=== PATIENT | male | born 1970 | race Caucasian/White ===

== ENCOUNTER 2016-05-07 20:57 | Inpatient (IN) | payer SELFPAY ==
[~2016-05-07] VITALS: Ht 180.3 cm; Wt 114.7 kg
[~2016-05-07 20:57] MED LIST: IBUP-103 PO; LOSA1TAB PO
[2016-05-07] MEDS ORDERED: SODIUM CHLORIDE 0.9% 1000ML 1,000 ML IV STA (21:14)
[2016-05-07] MEDS ORDERED: LOSARTAN POTASSIUM 50 MG TAB PO STA (21:14)
[2016-05-07] MEDS ORDERED: AMLODIPINE BESYLATE 5 MG TAB PO ONE (21:15)
[2016-05-07] MEDS ORDERED: LOSA1TAB38 PO (21:16)
[2016-05-07] MEDS ORDERED: AMLO-114 PO (21:16)
--- NOTE | 2016-05-07 21:20 | EMERGENCY ROOM VISIT NOTE ---
History Report prepared by Allison: Anupam Gillis Under the Supervision of: Dr. Khalif Rodriguez D.O. First contact with patient: 21:00 Chief Complaint: SEIZURE Stated Complaint: SEIZURE Nursing Triage Summary: Patient has a history of saleem bleed X 2 secondary to hypertension. Today patient had a witnessed unresponsive episode possible seizure. Upon EMS arrival patient is combative, uncooperative, required sedation. Patient arrives, arousable, but sedated. Patient denies any headache, nausea, vomiting, incont of urine or BM, negative recent illness. Patient has not taken htn medications for several days secondary to insurance. 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 This occurred twice in the past. Today, he had an unresponsive episode with a possible seizure. Via the patient, he was on his way to get dinner with his daughter after her concert when they stopped for food. That is all he remembers. Per EMS, the patient was combative, uncooperative, and required sedation and restraint. The patient denies any headache, chest pain, shortness of breath, leg edema, nausea , or vomiting. His only complaint is that his right arm and tongue hurts due to restraint and biting his tongue. He has never had a seizure before. Earlier today, the patient noted to feel at his normal. He said that he has not taken his blood pressure medications recently secondary to a loss of insurance. These include 100 mg Losartan and 10 mg Norvasc. He has not had any surgeries. 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 Review of Systems See HPI for pertinent positives & negatives. A total of 10 systems reviewed and were otherwise negative. Past Medical & Surgical Medical Problems: (1) No Known Active Medical Problems Family History Patient reports no known family medical history. Social History Smoking Status: Current Every Day Smoker Alcohol Use: other (rarely) Drug Use: none Housing Status: lives with family Current/Historical Medications Scheduled Amlodipine (Norvasc), 10 MG PO DAILY Losartan Potassium (Cozaar), 100 MG PO DAILY Allergies Coded Allergies: Ceftriaxone (Verified Allergy, Intermediate, HIVES, 05/17/15) Physical Exam Vital Signs Date Time Temp Pulse Resp B/P Pulse Ox O2 Delivery O2 Flow Rate FiO2 05/07/16 22:00 112/75 05/07/16 21:57 92 13 98 05/07/16 21:44 130/79 05/07/16 21:27 97 15 94 05/07/16 21:27 Nasal Cannula 4.0 05/07/16 21:23 Room Air 05/07/16 21:09 108 05/07/16 21:02 36.6 103 20 160/84 94 Room Air 05/07/16 21:02 92 Room Air 05/07/16 21:01 160/84 Physical Exam GENERAL: Patient is somewhat listless appearing. Answers questions slowly but appropriately. EYES: The conjunctivae are clear. The pupils are round and reactive. EARS, NOSE, MOUTH AND THROAT: The nose is without any evidence of any deformity. Mucous membranes are dry tongue is midline NECK: The neck is nontender and supple. RESPIRATORY: Normal respiratory effort is noted there is no evidence of wheezing rhonchi or rales CARDIOVASCULAR: Regular rate and rhythm noted there no murmurs rubs or gallops normal S1 normal S2 GASTROINTESTINAL: The abdomen is soft. Bowel sounds are present in all quadrants. Abdomen is nontender MUSCULOSKELETAL/EXTREMITIES: There is no evidence of gross deformity full range of motion is noted in the hips and shoulders SKIN: There is no obvious evidence of any rash. There are no petechiae, pallor or cyanosis noted. Linear abrasions to the right arm and right side of the upper back consistent with recent restraint. NEUROLOGIC: Patient is awake alert and oriented x3 strength is symmetric patellar reflexes are 2+ bilaterally. Medical Decision & Procedures ER Provider Diagnostic Interpretation: Radiology results as stated below per my review and radiologist interpretation: CT SCAN OF THE BRAIN WITHOUT IV CONTRAST CLINICAL HISTORY: Seizure. COMPARISON STUDY: CT scan of the brain dated 05/17/2015. TECHNIQUE: Unenhanced axial CT scan of the brain is performed from the vertex to the skull base. Automated dose control exposure was utilized. CT DOSE: 687.98 mGy.cm FINDINGS: Brain parenchyma: Minimal left temporal encephalomalacia is identified at a site of previous hemorrhage. There is no hemorrhage, mass effect, or evidence of acute territorial ischemia by CT criteria. Jordan-white matter is preserved. No extra-axial fluid collection is seen. Ventricles, sulci, cisterns: Normal in configuration. Intracranial vasculature: The visualized intracranial vasculature at the skull base is normal in appearance. Calvarium: Unremarkable. Sinuses and mastoids: Trace mucosal thickening is seen within the sphenoid sinuses. The remaining visualized paranasal sinuses are clear. The mastoid air cells are well pneumatized. Orbits: The bony orbits are grossly intact. IMPRESSION: There is no hemorrhage, mass effect, or evidence of acute territorial ischemia by CT criteria. Electronically signed by: Damion Meléndez M.D. 05/07/2016 9:45 PM Dictated Date/Time: 05/07/2016 9:42 PM SINGLE VIEW CHEST CLINICAL HISTORY: Seizure. FINDINGS: An AP, portable, upright chest radiograph is compared to study dated 05/17/2015. The examination is degraded by portable technique, large body habitus, and patient rotation. The heart is top normal for projection. The mediastinal contour is within normal limits. There is mild bibasilar atelectasis. The lungs and pleural spaces are otherwise clear. No pneumothorax is seen. The bony thorax is grossly intact. Degenerative change is noted in the thoracic spine. Bilateral nipple piercings are noted. IMPRESSION: No acute cardiopulmonary abnormality. Electronically signed by: Damion Meléndez M.D. 05/07/2016 9:28 PM Dictated Date/Time: 05/07/2016 9:27 PM Laboratory Results 05/07/16 20:40 Red Blood Count 5.40, Mean Corpuscular Volume 81.7, Mean Corpuscular Hemoglobin 30.7, Mean Corpuscular Hemoglobin Concent 37.6, Mean Platelet Volume 10.0 05/07/16 20:40 Test 05/07/16 20:40 05/07/16 23:20 05/07/16 23:21 White Blood Count 15.67 K/uL (4.8-10.8) Red Blood Count 5.40 M/uL (4.7-6.1) Hemoglobin 16.6 g/dL (14.0-18.0) Hematocrit 44.1 % (42-52) Mean Corpuscular Volume 81.7 fL (80-100) Mean Corpuscular Hemoglobin 30.7 pg (25-34) Mean Corpuscular Hemoglobin Concent 37.6 g/dl (32-36) Platelet Count 277 K/uL (130-400) Mean Platelet Volume 10.0 fL (7.4-10.4) RDW Standard Deviation 36.7 fL (36.4-46.3) RDW Coefficient of Variation 12.7 % (11.5-14.5) Neutrophils % (Manual) 45.6 % Lymphocytes % (Manual) 26.7 % Variant Lymphocytes % (manual) 18.1 % Monocytes % (Manual) 4.8 % Eosinophils % (Manual) 2.9 % Basophils % (Manual) 1.9 % (0-2) Neutrophils # (Manual) 7.15 K/uL (1.4-6.5) Total Absolute Neutrophils 7.15 K/uL (1.4-6.5) Lymphocytes # (Manual) 4.18 K/uL (1.2-3.4) Absolute Variant Lymphocytes 2.84 K/uL Total Absolute Lymphocytes 7.02 K/uL (1.2-3.4) Monocytes # (Manual) 0.75 K/uL (0.11-0.59) Eosinophils # (Manual) 0.45 K/uL (0-0.5) Basophils # (Manual) 0.30 K/uL (0-0.2) Prothrombin Time 10.7 SECONDS (9.0-12.0) Prothromb Time International Ratio 1.0 (0.9-1.1) Activated Partial Thromboplast Time 22.8 SECONDS (21.0-31.0) Partial Thromboplastin Ratio 0.9 Anion Gap 26.0 mmol/L (3-11) Est Creatinine Clear Calc Drug Dose 73.9 ml/min Estimated GFR () 59.0 Estimated GFR (Non- 50.9 BUN/Creatinine Ratio 11.3 (10-20) Calcium Level 8.6 mg/dl (8.5-10.1) Phosphorus Level 4.2 mg/dl (2.5-4.9) Magnesium Level 2.2 mg/dl (1.8-2.4) Total Bilirubin 0.4 mg/dl (0.2-1) Direct Bilirubin < 0.1 mg/dl (0-0.2) Aspartate Amino Transf (AST/SGOT) 28 U/L (15-37) Alanine Aminotransferase (ALT/SGPT) 56 U/L (12-78) Alkaline Phosphatase 100 U/L (45-117) Total Creatine Kinase 207 U/L (39-308) Total Protein 8.0 gm/dl (6.4-8.2) Albumin 4.4 gm/dl (3.4-5.0) Thyroid Stimulating Hormone (TSH) 7.260 uIu/ml (0.300-4.500) Free Thyroxine 0.93 ng/dl (0.80-1.60) Laboratory results per my review. Medications Administered Medications (Trade) Dose Ordered Sig/Marino Route Start Time Stop Time Status Last Admin Dose Admin Sodium Chloride (Nss 1000ml) 1,000 ml @ 999 mls/hr Q1H1M STAT IV 05/07/16 21:14 05/07/16 22:14 DC 05/07/16 21:28 999 MLS/HR Losartan Potassium (coZAAR TAB) 100 mg ONE STAT PO 05/07/16 21:14 05/07/16 21:16 DC 05/07/16 21:29 100 MG Amlodipine Besylate (Norvasc Tab) 10 mg NOW ONCE PO 05/07/16 21:15 05/07/16 21:16 DC 05/07/16 21:29 10 MG Potassium Chloride (Klor-Con M10) 40 meq NOW STAT PO 05/07/16 23:21 05/07/16 23:22 DC 05/07/16 23:40 40 MEQ ECG Indication: other (Seizure) Rate (beats per minute): 103 Rhythm: sinus tachycardia Findings: no ectopy, other (No acute ST- segment abnormalities) Comparison ECG Date: 18 May 2015 Change: no significant change ED Course 2100: The patient was evaluated in room A12. A complete history and physical examination were performed. 2113: Losartan Potassium 100 mg PO, NSS 1,000 ml @ 999 mls/hr IV 2114: Norvasc Tab 10 mg PO 8: Upon reevaluation, the patient is resting. I discussed results and treatment plan with him. He verbalizes agreement and understanding. I spoke with Dr. Leila Ramirez Hospitalist. The patient will be evaluated for further management and care. Medical Decision Differential diagnosis: Etiologies such as infection, hypoglycemia, electrolyte abnormalities, cardiac sources, intracerebral event, trauma, toxicologic, neurologic, as well as others were entertained. Nursing notes reviewed. Additional history is obtained from the prehospital personnel. The patient is a 45-year-old male who presented to the emergency department by ambulance after having a seizure. I received a prehospital medical command call about this patient. Prior to arrival he had an episode of a seizure. His post ictal phase was very violent and he became aggressive. He required restraint prior to arrival. He received Ativan prior to arrival and upon arriving at the emergency Department he was significantly improved. His condition continued to improve while he was in the ER. He states that he did not feel ill prior to the onset of this episode. The patient doesn't a history of a hemorrhagic CVA in the past. The patient has a history of hypertension and he is not always compliant with his medications. The patient was treated with his blood pressure medication while he was in the emergency department. I discussed the patient's laboratory and radiographic studies with him. Given his history of hemorrhagic CVA is possible that this represents a true seizure disorder and the patient may require further workup as well as antiepileptic medications. This reason I discussed his case with the on-call [facility] hospitalist group. They have agreed to evaluate the patient in the emergency department for further management and disposition. Consults Time Called: 2214 Consulting Physician[facility] Returned Call: [phone] He will be evaluating the patient for further management. Impression Primary Impression: New onset seizure Scribe Attestation The scribe's documentation has been prepared under my direction and personally reviewed by me in its entirety. I confirm that the note above accurately reflects all work, treatment, procedures, and medical decision making performed by me. Departure Information Dispostion Being Evaluated By Hospitalist Referrals No Doctor, Assigned (PCP) Patient Instructions [facility]
[2016-05-07 21:26] LABS: HEMATOCRIT 44.1 % (42-52); MEAN CELL VOLUME 81.7 fL (80-100); MEAN CORPUSCULAR HEMOGLOBIN 30.7 pg (25-34); MEAN CORPUSCULAR HGB CONC 37.6 g/dl (32-36); PLATELET COUNT 277 K/uL (130-400); WHITE BLOOD COUNT 15.67 K/uL (4.8-10.8)
--- NOTE | 2016-05-07 21:29 | DIAGNOSTIC IMAGING REPORT ---
SINGLE VIEW CHEST CLINICAL HISTORY: Seizure. FINDINGS: An AP, portable, upright chest radiograph is compared to study dated 05/17/2015. The examination is degraded by portable technique, large body habitus, and patient rotation. The heart is top normal for projection. The mediastinal contour is within normal limits. There is mild bibasilar atelectasis. The lungs and pleural spaces are otherwise clear. No pneumothorax is seen. The bony thorax is grossly intact. Degenerative change is noted in the thoracic spine. Bilateral nipple piercings are noted. IMPRESSION: No acute cardiopulmonary abnormality. Electronically signed by: Damion Meléndez M.D. 05/07/2016 9:28 PM Dictated Date/Time: 05/07/2016 9:27 PM
[2016-05-07 21:38] LABS: PARTIAL THROMBOPLASTIN RATIO 0.9; PROTHROMBIN TIME (PATIENT) 10.7 SECONDS (9.0-12.0)
--- NOTE | 2016-05-07 21:46 | DIAGNOSTIC IMAGING REPORT ---
CT SCAN OF THE BRAIN WITHOUT IV CONTRAST CLINICAL HISTORY: Seizure. COMPARISON STUDY: CT scan of the brain dated 05/17/2015. TECHNIQUE: Unenhanced axial CT scan of the brain is performed from the vertex to the skull base. Automated dose control exposure was utilized. CT DOSE: 687.98 mGy.cm FINDINGS: Brain parenchyma: Minimal left temporal encephalomalacia is identified at a site of previous hemorrhage. There is no hemorrhage, mass effect, or evidence of acute territorial ischemia by CT criteria. Jordan-white matter is preserved. No extra-axial fluid collection is seen. Ventricles, sulci, cisterns: Normal in configuration. Intracranial vasculature: The visualized intracranial vasculature at the skull base is normal in appearance. Calvarium: Unremarkable. Sinuses and mastoids: Trace mucosal thickening is seen within the sphenoid sinuses. The remaining visualized paranasal sinuses are clear. The mastoid air cells are well pneumatized. Orbits: The bony orbits are grossly intact. IMPRESSION: There is no hemorrhage, mass effect, or evidence of acute territorial ischemia by CT criteria. Electronically signed by: Damion Meléndez M.D. 05/07/2016 9:45 PM Dictated Date/Time: 05/07/2016 9:42 PM
[2016-05-07 22:00] LABS: BUN/CREATININE RATIO 11.3 (10-20); CALCIUM 8.6 mg/dl (8.5-10.1); CREATININE 1.6 mg/dl (0.60-1.40); PHOSPHORUS 4.2 mg/dl (2.5-4.9); THYROID STIMULATING HORMONE 7.26 uIu/ml (0.300-4.500)
[2016-05-07 22:04] LABS: POTASSIUM 3.4 mmol/L (3.5-5.1)
[2016-05-07 22:05] LABS: MAGNESIUM 2.2 mg/dl (1.8-2.4)
[2016-05-07 22:41] LABS: BASOPHIL % 1.9 % (0-2); COMPLETE YES; EOSINOPHIL % 2.9 %; LYMPH ABS # 4.18 K/uL (1.2-3.4); LYMPHOCYTE % 26.7 %; NEUTROPHILS % 45.6 %; VARIANT LYM ABS # 2.84 K/uL; VARIANT LYMPHOCYTE % 18.1 %
[2016-05-07 22:56] LABS: ALKALINE PHOSPHATASE 100 U/L (45-117); ALT/SGPT 56 U/L (12-78); AST/SGOT 28 U/L (15-37)
[2016-05-07] MEDS ORDERED: POTASSIUM CHLORIDE 10 MEQ TABCR PO STA (23:21)
[2016-05-07 23:40] LABS: URINE APPEARANCE CLEAR (CLEAR); URINE BILIRUBIN NEG (NEG); URINE COLOR YELLOW; URINE NITRITE NEG (NEG); URINE SPECIFIC GRAVITY 1.008 (1.000-1.030); UROBILINOGEN NEG (NEG)
[2016-05-07 23:53] LABS: MANUAL MICROSCOPIC REQUIRED? NO; REVIEW REQ? NO
[2016-05-08 00:03] LABS: BENZODIAZEPINE, URINE NEG (NEG); COCAINE,URINE NEG (NEG); PHENCYCLIDINE, URINE NEG (NEG)
[2016-05-08] MEDS ORDERED: LORAZEPAM INJ 1 MG in SYRINGE 0.5 ML IV PRN (00:15)
[2016-05-08] MEDS ORDERED: LEVETIRACETAM IV 500 MG in DEXTROSE 5% 100ML 100 ML IV STA (00:20)
[2016-05-08] MEDS ORDERED: ACETAMINOPHEN 325 MG TAB PO PRN (00:30)
[2016-05-08] MEDS ORDERED: ONDANSETRON INJ 2 MG/ML 2 ML VIAL IV PRN (00:30)
[2016-05-08] MEDS ORDERED: HYDROmorphone INJ 0.5 MG/0.5 ML SYR IV PRN (00:30)
[2016-05-08] MEDS ORDERED: LORAZEPAM 2 MG/ML 1 ML VIAL IV PRN (00:30)
[2016-05-08] MEDS ORDERED: LACTATED RINGER'S 1000ML 1,000 ML IV ONE (01:30)
[2016-05-08] MEDS ORDERED: LORAZEPAM INJ 0.5 MG in SYRINGE 0.75 ML IV PRN (01:30)
[2016-05-08] MEDS ORDERED: GADAVIST IV PRN (01:30)
[2016-05-08 01:48] VITALS: BP 138/87; PULSE 87; TEMP 36.4; O2SAT 94; Ht 180.3 cm; Wt 114.7 kg
--- NOTE | 2016-05-08 05:33 | HISTORY & PHYSICAL EXAMINATION ---
DATE OF ADMISSION: 05/07/2016 PRIMARY CARE DOCTOR: Dr. Nunez CHIEF COMPLAINT: New onset seizures. History was obtained from the patient's records. HISTORY OF PRESENT ILLNESS: Medical history is significant for recurrent intracranial hemorrhage, hypertension, and ongoing tobacco abuse. 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 So far no explanation found as per px. Initially on Keppra for seizure prophylaxis. Subsequently, the patient was tapered off Keppra in the middle of last year. Last night, the patient was at the grocery. He went to over to the carlos register. Last memory was feeling fuzzy, saying something to the cardiac cath technician that did not make sense. Patient subsequently woke up on the floor, having bit his tongue. He woke up handcuffed placed by some police patrol lieutenant grocery bystander who had to handcuff him to restrain him. No chest pain, no shortness of breath. No incontinence. He was brought to the Emergency Room. SBP 160s at the ER. Patient given Amlodipine and Cozaar. MEDICAL HISTORY: As above. Alternating his blood pressure pills secondary to insurance issues. SURGERIES: neurovascular procedures. HOME MEDICATIONS: Include; Losartan and amlodipine. FAMILY HISTORY: Hypertension. PERSONAL AND SOCIAL HISTORY: A pack daily. No chronic intake of alcoholic beverages. 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 ALLERGIES: TO CEFTRIAXONE. REVIEW OF SYSTEMS: As per HPI, all other ROS negative. PHYSICAL EXAMINATION: VITAL SIGNS: Blood pressure was noted to be 160/84 later 130/79, pulse rate 97, RR 15, temperature 36.4 and sats 94 on room air. GENERAL: Noted to be unkempt, obese, in no respiratory distress, looks older for stated age. SKIN: Normal color. HEENT: [place] palpebral conjunctivae. Dry mucosa. Tongue noted to be bruised. NECK: Short neck. LUNGS: Decreased breath sounds. HEART: Regular rate and rhythm. ABDOMEN: Some distention. EXTREMITIES: No edema. no tenderness NEUROLOGIC: No gross focality. LABORATORIES: Hemoglobin was noted to be 16, hematocrit 44, white cell count 15 and platelets 277. Sodium 141, potassium 3.4, chloride 102, CO2 13, BUN 18, creatinine 1.[address] of the head; no acute pathology. Chest x-ray; no acute cardiac abnormality ASSESSMENT: 1. New onset seizures hx recurrent intracranial hemorrhage clinical dehydration, electrolyte abnormalities may have lowered seizure threshold 2. hypertension elevated suboptimal compliance secondary to financial constraints 3. ongoing tobacco abuse 4. acute renal failure poss from home medication. PLAN: GMF Resume Keppra. seizure precautions, Ativan prn EEG. MRI of the brain for new onset seizure workup. Neurology consult. RE new onset seizure. (Patient is known to Dr. Wick.) Replace potassium. Check magnesium. Monitor creatinine response to IVF Hold home ARB until creatinine is at baseline. Nicotine patch. DVT prophylaxis, SCDs. RE hx intracranial hemorrhage. Full code. The Case was discussed with Dr. 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 He concurs w/ plan to resume Keppra. MTDD
[2016-05-08 05:38] LABS: BASO % 0.3 %; BASO ABS # 0.03 K/uL (0-0.2); COMPLETE YES; EOS % 2.2 %; IG% 0.3 %; LYMPH % 20.3 %; LYMPH ABS # 2.33 K/uL (1.2-3.4); MEAN CELL VOLUME 81.9 fL (80-100); MEAN CORPUSCULAR HGB CONC 36.7 g/dl (32-36); MONO % 9.8 %; NEUT % 67.1 %; PLATELET COUNT 186 K/uL (130-400); RED BLOOD COUNT 4.76 M/uL (4.7-6.1); WHITE BLOOD COUNT 11.47 K/uL (4.8-10.8)
[2016-05-08] MEDS: LEVETIRACETAM IV 500 MG in DEXTROSE 5% 100ML 100 ML IV SCH ×2 (05:57→19:17)
[2016-05-08 06:01] LABS: BUN/CREATININE RATIO 12.2 (10-20); CALCIUM 8.1 mg/dl (8.5-10.1); CREATININE 1.2 mg/dl (0.60-1.40); POTASSIUM 3.5 mmol/L (3.5-5.1)
--- NOTE | 2016-05-08 07:20 | DIAGNOSTIC IMAGING REPORT ---
Brain MRI WITH AND WITHOUT CONTRAST HISTORY: seizure activity, history of hemorrhagic CVA TECHNIQUE: Multiplanar multisequence MRI of the brain was performed both before and after the intravenous administration of contrast. COMPARISON STUDY: Head CT 05/07/2016. FINDINGS: Small linear focus of encephalomalacia within the left temporal lobe with associated hemosiderin consistent with an old hemorrhagic infarct. There is no mass, acute hemorrhage, acute infarct, or midline shift. There are few punctate foci of T2 hyperintensity seen within the periventricular white matter. These are nonspecific but favor minimal microvascular ischemic change. The ventricles are normal in size. Medial temporal lobes are symmetric. Mild motion artifact. No definite abnormal enhancement. The major vascular flow voids at the skull base are maintained. Mild mucosal thickening within the right ethmoid air cells and sphenoid sinuses. The orbits are unremarkable. IMPRESSION: Old small left temporal hemorrhagic infarct. Otherwise, no acute intracranial abnormality. Electronically signed by: Trae Pinedo M.D. 05/08/2016 7:19 AM Dictated Date/Time: 05/08/2016 7:14 AM
[2016-05-08 08:11] VITALS: BP 116/72; PULSE 81; TEMP 36.3; O2SAT 97
[2016-05-08] MEDS: NICOTINE 14 MG/24 HR TDSY TD SCH (08:20)
[2016-05-08] MEDS: AMLODIPINE BESYLATE 5 MG TAB PO SCH (08:21)
--- NOTE | 2016-05-08 11:49 | Progress Note ---
Medicine Progress Note Date & Time of Visit: May 08, 2016 at 11:31. (Charu Draper PA-C) Subjective Patient seen and examined. He was admitted overnight for possible seizure activity which occurred around 9pm last evening. Pt states he was in a convenience store and lost his train of thought then the next thing he remembered is awakening on the floor. He states he was handcuffed due to combativeness. He did bite his tongue during the episode. He states since that time he has mild tingling in left fingertips. He states "head is swimming" but not feeling lightheaded or spinning sensation. He states his balance was slightly off when ambulating to restroom this morning. Prior to the episode patient was feeling well and was eating/drinking normally. He denies prior seizure. He has a history of brain hemorrhage in August 2014 and May 2015 and was on Keppra for seizure prophylaxis but this was discontinued approximately 6 months ago. He at breakfast this morning. He reports increased urine output while on IVF's. Pt denies headache, vision change, speech or swallowing difficulty, focal weakness, chest pain, SOB, N/V/D, dysuria. Denies hx of thyroid disease. (Charu Draper PA-C) Objective Last 8 Hrs Date Time Temp Pulse Resp B/P Pulse Ox O2 Delivery O2 Flow Rate FiO2 05/08/16 08:11 36.3 81 16 116/72 97 Room Air 05/08/16 08:00 Room Air Physical Exam: General-alert pleasant 45 year old male, no distress Eyes-anicteric, JOHNNY, EOMI ENT-hearing intact, pharynx normal Neck-supple, trachea midline, no bruits Lungs-CTA bilaterally, no respiratory distress Heart-RRR, no murmur Abdomen-soft, nontender, normal bowel sounds Extremities-no edema, no calf tenderness Neuro-cranial nerves intact, no focal motor or sensory deficits, finger to nose intact bilaterally Laboratory Results: Last 24 Hours Test 05/07/16 20:40 05/07/16 23:20 05/07/16 23:56 05/08/16 05:12 White Blood Count 15.67 K/uL 11.47 K/uL Red Blood Count 5.40 M/uL 4.76 M/uL Hemoglobin 16.6 g/dL 14.3 g/dL Hematocrit 44.1 % 39.0 % Mean Corpuscular Volume 81.7 fL 81.9 fL Mean Corpuscular Hemoglobin 30.7 pg 30.0 pg Mean Corpuscular Hemoglobin Concent 37.6 g/dl 36.7 g/dl Platelet Count 277 K/uL 186 K/uL Mean Platelet Volume 10.0 fL 10.0 fL RDW Standard Deviation 36.7 fL 37.6 fL RDW Coefficient of Variation 12.7 % 12.8 % Neutrophils % (Manual) 45.6 % Lymphocytes % (Manual) 26.7 % Variant Lymphocytes % (manual) 18.1 % Monocytes % (Manual) 4.8 % Eosinophils % (Manual) 2.9 % Basophils % (Manual) 1.9 % Neutrophils # (Manual) 7.15 K/uL Total Absolute Neutrophils 7.15 K/uL Lymphocytes # (Manual) 4.18 K/uL Absolute Variant Lymphocytes 2.84 K/uL Total Absolute Lymphocytes 7.02 K/uL Monocytes # (Manual) 0.75 K/uL Eosinophils # (Manual) 0.45 K/uL Basophils # (Manual) 0.30 K/uL Prothrombin Time 10.7 SECONDS Prothromb Time International Ratio 1.0 Activated Partial Thromboplast Time 22.8 SECONDS Partial Thromboplastin Ratio 0.9 Sodium Level 141 mmol/L 144 mmol/L Potassium Level 3.4 mmol/L 3.5 mmol/L Chloride Level 102 mmol/L 108 mmol/L Carbon Dioxide Level 13 mmol/L 28 mmol/L Anion Gap 26.0 mmol/L 8.0 mmol/L Blood Urea Nitrogen 18 mg/dl 15 mg/dl Creatinine 1.60 mg/dl 1.20 mg/dl Est Creatinine Clear Calc Drug Dose 73.9 ml/min 99.0 ml/min Estimated GFR () 59.0 83.5 Estimated GFR (Non- 50.9 72.1 BUN/Creatinine Ratio 11.3 12.2 Random Glucose 124 mg/dl 96 mg/dl Calcium Level 8.6 mg/dl 8.1 mg/dl Phosphorus Level 4.2 mg/dl Magnesium Level 2.2 mg/dl Total Bilirubin 0.4 mg/dl Direct Bilirubin < 0.1 mg/dl Aspartate Amino Transf (AST/SGOT) 28 U/L Alanine Aminotransferase (ALT/SGPT) 56 U/L Alkaline Phosphatase 100 U/L Total Creatine Kinase 207 U/L Total Protein 8.0 gm/dl Albumin 4.4 gm/dl Thyroid Stimulating Hormone (TSH) 7.260 uIu/ml Free Thyroxine 0.93 ng/dl Urine Color YELLOW Urine Appearance CLEAR Urine pH 5.0 Urine Specific [place] 1.008 Urine Protein NEG Urine Glucose (UA) NEG Urine Ketones NEG Urine Occult Blood NEG Urine Nitrite NEG Urine Bilirubin NEG Urine Urobilinogen NEG Urine Leukocyte Esterase NEG Urine Opiates Screen NEG Urine Methadone, Qualitative NEG Urine Barbiturates NEG Urine Phencyclidine (PCP) Level NEG Ur Amphetamine/Methamphetamine NEG MDMA (Ecstasy) Screen NEG Urine Benzodiazepines Screen NEG Urine Cocaine Metabolite NEG Urine Marijuana (THC) NEG Lactic Acid Level 1.2 mmol/L Neutrophils (%) (Auto) 67.1 % Lymphocytes (%) (Auto) 20.3 % Monocytes (%) (Auto) 9.8 % Eosinophils (%) (Auto) 2.2 % Basophils (%) (Auto) 0.3 % Neutrophils # (Auto) 7.71 K/uL Lymphocytes # (Auto) 2.33 K/uL Monocytes # (Auto) 1.12 K/uL Eosinophils # (Auto) 0.25 K/uL Basophils # (Auto) 0.03 K/uL Immature Granulocyte % (Auto) 0.3 % Immature Granulocyte # (Auto) 0.03 K/uL Date/Time Source Procedure Growth Status 05/07/16 23:56 Blood Blood Culture Pending Received 05/07/16 23:50 Blood Blood Culture Pending Received (Charu Draper PA-C) Assessment & Plan NEW ONSET SEIZURE History of recurrent intracranial hemorrhage Was clinically dehydrated with hypokalemia on admission which may have lowered seizure threshold Ashlyn resumed Neurology consulted; case discussed with Dr. 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 Contreras. Please see his addendum. Current Inpatient Medications: Current Inpatient Medications Medications (Trade) Dose Ordered Sig/Marino Route Start Time Stop Time Status Last Admin Dose Admin Levetiracetam 500 mg/Dextrose 105 ml @ 420 mls/hr Q12H IV 05/08/16 06:00 06/07/16 05:59 05/08/16 05:57 420 MLS/HR Lorazepam/Syringe (Ativan Inj/ Syringe) 1 ml @ 0.5 mls/min UD PRN IV 05/08/16 00:15 06/07/16 00:14 Acetaminophen (Tylenol Tab) 650 mg Q4H PRN PO 05/08/16 00:30 06/07/16 00:29 Hydromorphone HCl (Dilaudid Inj) 0.5 mg Q3H PRN IV 05/08/16 00:30 05/22/16 00:29 Oxycodone/ Acetaminophen (Percocet 5-325mg Tab) 1 tab Q6H PRN PO 05/08/16 00:30 05/22/16 00:29 Ondansetron HCl (Zofran Inj) 4 mg Q6H PRN IV 05/08/16 00:30 06/07/16 00:29 Lorazepam 0.5 mg 0.5 mg Q4H PRN IV 05/08/16 00:30 06/07/16 00:29 Lactated Ringer's (Lr 1000ml) 1,000 ml @ 75 mls/hr [id number] ONCE IV 05/08/16 01:30 05/08/16 14:49 05/08/16 01:39 75 MLS/HR Nicotine (Nicoderm Cq 14MG Patch) 1 patch QAM TD 05/08/16 09:00 06/07/16 08:59 Miscellaneous (Remove Nicoderm Patch) 1 ea HS N/A 05/08/16 21:00 06/07/16 20:59 Amlodipine Besylate (Norvasc Tab) 10 mg DAILY PO 05/08/16 09:00 06/07/16 08:59 05/08/16 08:21 10 MG Gadobutrol 11 mmol 11 mmol UD PRN IV 05/08/16 01:30 05/12/16 01:29 Lorazepam/Syringe (Ativan Inj/ Syringe) 1 ml @ 1 mls/min Q4H PRN IV 05/08/16 01:30 06/07/16 01:29 (Charu Draper PA-C) Patient5 continues to do well. Alert/AWake and no new seizure event overnight. (Sebastian Contreras MD)
[2016-05-08] MEDS: OXYCODONE/ACETAMINOPHEN 5-325 TAB PO PRN ×2 (14:24→20:20)
--- NOTE | 2016-05-08 14:37 | Neurology Consultation ---
Neurology Consultation Date of Consultation: May 08, 2016. Attending Physician: Sebastian Contreras MD Primary Care Physician: Calin Nunez MD Reason for Consultation: new onset seizure History of Present Illness Source: patient Tobin is a 45 year old male with PMH recurrent ICH, HTN and tobacco abuse. He had a left temporal hemorrhage in August of 2014 and May 2015. He was in a convenience store and lost his train of thought then the next thing he remembered is awakening on the floor. He states he was handcuffed due to combativeness. He also bite his tongue. He states since that time he has mild tingling in left fingertips. He states "head is swimming" off balance he states the room is not spinng but he was off balance with ambulating to restroom this morning. He state she was on seizure medicine in the past but that was to prevent a seizure he didn't have a seizure with either bleed. He was on Keppra 500 mg BID but is was weaned off since he had not had a seizure. 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 Denies headache, vision change, speech or swallowing difficulty, focal weakness , chest pain, SOB, N/V/D, dysuria. + light headed, balance issue, back and tongue pain. Past Medical/Surgical History Medical Problems: (1) Headache Status: Acute (2) Intracranial hemorrhage Status: Acute (3) Jaw pain Status: Acute (4) New onset seizure Status: Acute (5) Pain, dental Status: Acute Social History Smoking Status: Current every day smoker Drug Use: none Housing Status: lives with family Allergies Coded Allergies: Ceftriaxone (Verified Allergy, Intermediate, HIVES, 05/17/15) Current Inpatient Medications Current Inpatient Medications Medications (Trade) Dose Ordered Sig/Marino Route Start Time Stop Time Status Last Admin Dose Admin Levetiracetam 500 mg/Dextrose 105 ml @ 420 mls/hr Q12H IV 05/08/16 06:00 06/07/16 05:59 05/08/16 05:57 420 MLS/HR Lorazepam/Syringe (Ativan Inj/ Syringe) 1 ml @ 0.5 mls/min UD PRN IV 05/08/16 00:15 06/07/16 00:14 Acetaminophen (Tylenol Tab) 650 mg Q4H PRN PO 05/08/16 00:30 06/07/16 00:29 Hydromorphone HCl (Dilaudid Inj) 0.5 mg Q3H PRN IV 05/08/16 00:30 05/22/16 00:29 Oxycodone/ Acetaminophen (Percocet 5-325mg Tab) 1 tab Q6H PRN PO 05/08/16 00:30 05/22/16 00:29 Ondansetron HCl (Zofran Inj) 4 mg Q6H PRN IV 05/08/16 00:30 06/07/16 00:29 Lorazepam 0.5 mg 0.5 mg Q4H PRN IV 05/08/16 00:30 06/07/16 00:29 Lactated Ringer's (Lr 1000ml) 1,000 ml @ 75 mls/hr [id number] ONCE IV 05/08/16 01:30 05/08/16 14:49 05/08/16 01:39 75 MLS/HR Nicotine (Nicoderm Cq 14MG Patch) 1 patch QAM TD 05/08/16 09:00 06/07/16 08:59 Miscellaneous (Remove Nicoderm Patch) 1 ea HS N/A 05/08/16 21:00 06/07/16 20:59 Amlodipine Besylate (Norvasc Tab) 10 mg DAILY PO 05/08/16 09:00 06/07/16 08:59 05/08/16 08:21 10 MG Gadobutrol 11 mmol 11 mmol UD PRN IV 05/08/16 01:30 05/12/16 01:29 Lorazepam/Syringe (Ativan Inj/ Syringe) 1 ml @ 1 mls/min Q4H PRN IV 05/08/16 01:30 06/07/16 01:29 Physical Exam Vital Signs (Past 24 Hrs): Date Time Temp Pulse Resp B/P Pulse Ox O2 Delivery O2 Flow Rate FiO2 05/08/16 08:11 36.3 81 16 116/72 97 Room Air 05/08/16 08:00 Room Air 05/08/16 01:48 36.4 87 20 138/87 94 Room Air 05/08/16 00:04 36.4 83 19 128/82 100 05/07/16 22:00 112/75 3/6/17 21:57 92 13 98 05/07/16 21:44 130/79 05/07/16 21:27 97 15 94 05/07/16 21:27 Nasal Cannula 4.0 05/07/16 21:23 Room Air 05/07/16 21:09 108 05/07/16 21:02 36.6 103 20 160/84 94 Room Air 05/07/16 21:02 92 Room Air 05/07/16 21:01 160/84 Physical Exam: Constitutional: BP 110/78 | Pulse 68 | Temp (Src) 96.4 (Tympanic) | Resp 12 | Wt 175 lbs 12.8 oz (79.742kg) | BMI 32.15 kg/m | BSA 1.87 m, appearance nourished, healthy and normal Ears, Nose, Mouth and Throat: mucous membranes moist, no injection and skin normal, eyes normal Cardiovascular: normal S-1 and S-2 and regular rate and rhythm Respiratory: clear to auscultation (CTA) and no rales, ronchi or wheeze Musculoskeletal: no peripheral edema and good distal pulses Skin: no stigmata of neurocutaneous disease noted and normal and intact Eyes: extraocular muscles intact (EOMI) and pupils equal, round and reactive to light (PERRL) NEUROLOGIC EXAMINATION: Mental status: Alert and interactive Oriented to full date and location Oriented to person Speech fluent with no evidence of aphasia Cranial Nerves Normal findings for Cranial Nerves II - XII Reflexes: Deep tendon reflexes were symmetrical and graded 2/5. Plantar responses were flexor. Sensory: no sensory deficits Coordination: Romberg absent Gait/Stance: Posture normal. Gait normal: with steady with steps, base, turning, heel and toe walking and tandem gait. Motor: Negative for pronator drift of out stretched arms with eyes closed. Strength: Normal - 5/5 all extremities Laboratory Results Past 24 Hours: 05/08/16 05:12 Red Blood Count 4.76, Mean Corpuscular Volume 81.9, Mean Corpuscular Hemoglobin 30.0, Mean Corpuscular Hemoglobin Concent 36.7, Mean Platelet Volume 10.0, Neutrophils (%) (Auto) 67.1, Lymphocytes (%) (Auto) 20.3, Monocytes (%) (Auto) 9.8, Eosinophils (%) (Auto) 2.2, Basophils (%) (Auto) 0.3, Neutrophils # (Auto) 7.71, Lymphocytes # (Auto) 2.33, Monocytes # (Auto) 1.12, Eosinophils # (Auto) 0.25, Basophils # (Auto) 0.03 05/08/16 05:12 Test 05/07/16 20:40 05/07/16 23:20 05/07/16 23:56 05/08/16 05:12 Neutrophils % (Manual) 45.6 % Lymphocytes % (Manual) 26.7 % Variant Lymphocytes % (manual) 18.1 % Monocytes % (Manual) 4.8 % Eosinophils % (Manual) 2.9 % Basophils % (Manual) 1.9 % (0-2) Neutrophils # (Manual) 7.15 K/uL (1.4-6.5) Total Absolute Neutrophils 7.15 K/uL (1.4-6.5) Lymphocytes # (Manual) 4.18 K/uL (1.2-3.4) Absolute Variant Lymphocytes 2.84 K/uL Total Absolute Lymphocytes 7.02 K/uL (1.2-3.4) Monocytes # (Manual) 0.75 K/uL (0.11-0.59) Eosinophils # (Manual) 0.45 K/uL (0-0.5) Basophils # (Manual) 0.30 K/uL (0-0.2) Prothrombin Time 10.7 SECONDS (9.0-12.0) Prothromb Time International Ratio 1.0 (0.9-1.1) Activated Partial Thromboplast Time 22.8 SECONDS (21.0-31.0) Partial Thromboplastin Ratio 0.9 Phosphorus Level 4.2 mg/dl (2.5-4.9) Magnesium Level 2.2 mg/dl (1.8-2.4) Total Bilirubin 0.4 mg/dl (0.2-1) Direct Bilirubin < 0.1 mg/dl (0-0.2) Aspartate Amino Transf (AST/SGOT) 28 U/L (15-37) Alanine Aminotransferase (ALT/SGPT) 56 U/L (12-78) Alkaline Phosphatase 100 U/L (45-117) Total Creatine Kinase 207 U/L (39-308) Total Protein 8.0 gm/dl (6.4-8.2) Albumin 4.4 gm/dl (3.4-5.0) Thyroid Stimulating Hormone (TSH) 7.260 uIu/ml (0.300-4.500) Free Thyroxine 0.93 ng/dl (0.80-1.60) Urine Color YELLOW Urine Appearance CLEAR (CLEAR) Urine pH 5.0 (4.5-7.5) Urine Specific [place] 1.008 (1.000-1.030) Urine Protein NEG (NEG) Urine Glucose (UA) NEG (NEG) Urine Ketones NEG (NEG) Urine Occult Blood NEG (NEG) Urine Nitrite NEG (NEG) Urine Bilirubin NEG (NEG) Urine Urobilinogen NEG (NEG) Urine Leukocyte Esterase NEG (NEG) Urine Opiates Screen NEG (NEG) Urine Methadone, Qualitative NEG (NEG) Urine Barbiturates NEG (NEG) Urine Phencyclidine (PCP) Level NEG (NEG) Ur Amphetamine/Methamphetamine NEG (NEG) MDMA (Ecstasy) Screen NEG (NEG) Urine Benzodiazepines Screen NEG (NEG) Urine Cocaine Metabolite NEG (NEG) Urine Marijuana (THC) NEG (NEG) Lactic Acid Level 1.2 mmol/L (0.4-2.0) White Blood Count 11.47 K/uL (4.8-10.8) Red Blood Count 4.76 M/uL (4.7-6.1) Hemoglobin 14.3 g/dL (14.0-18.0) Hematocrit 39.0 % (42-52) Mean Corpuscular Volume 81.9 fL (80-100) Mean Corpuscular Hemoglobin 30.0 pg (25-34) Mean Corpuscular Hemoglobin Concent 36.7 g/dl (32-36) Platelet Count 186 K/uL (130-400) Mean Platelet Volume 10.0 fL (7.4-10.4) Neutrophils (%) (Auto) 67.1 % Lymphocytes (%) (Auto) 20.3 % Monocytes (%) (Auto) 9.8 % Eosinophils (%) (Auto) 2.2 % Basophils (%) (Auto) 0.3 % Neutrophils # (Auto) 7.71 K/uL (1.4-6.5) Lymphocytes # (Auto) 2.33 K/uL (1.2-3.4) Monocytes # (Auto) 1.12 K/uL (0.11-0.59) Eosinophils # (Auto) 0.25 K/uL (0-0.5) Basophils # (Auto) 0.03 K/uL (0-0.2) RDW Standard Deviation 37.6 fL (36.4-46.3) RDW Coefficient of Variation 12.8 % (11.5-14.5) Immature Granulocyte % (Auto) 0.3 % Immature Granulocyte # (Auto) 0.03 K/uL (0.00-0.02) Anion Gap 8.0 mmol/L (3-11) Est Creatinine Clear Calc Drug Dose 99.0 ml/min Estimated GFR () 83.5 Estimated GFR (Non- 72.1 BUN/Creatinine Ratio 12.2 (10-20) Calcium Level 8.1 mg/dl (8.5-10.1) Imaging MRI with and without contrast brain- Old small left temporal hemorrhagic infarct. Otherwise, no acute intracranial abnormality. Impression 45 year old male s/p seizure LOC and fall. Plan 1. MRI no acute findings 2. continue Keppra 500 mg BID 3. back pain management per primary team 4. no swimming, bathing alone, no heights, no driving x 6 months 5. PT for balance issues 6. seizure precautions and safety discussed 7. urged to quit smoking I have seen and discussed above patient care and mgt with Dr Yoni Coello, neurolog I have seen this patient and reviewed his records, examined him and reviewed the above with Luann Florez post two left hemispheric bleeds of uncertain cause ( possibley hypertensive but odd ) with negative workups and off the peventative doses of keppra that been on board for about a year for at least the past six months Now in with clear cut seizure likely of focal origin with secondary generalization and was quite combative post ictally Now calm with minor bucal trauma and non focal exam with nothing new on imaging and with a normal eeg but clearly needs to be back on keppra in low dose with follow up levels on outpatient basis We may need to raise the dose into a therapeutic window as in the past he was on only preventative doses and the seizure now raises the bar a bit. 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
[2016-05-08 15:19] VITALS: BP 101/63; PULSE 87; TEMP 37.1; O2SAT 96
[2016-05-08 16:00] VITALS: O2SAT 96
--- NOTE | 2016-05-08 22:02 | ELECTROENCEPHALOGRAPH REPORT ---
REQUESTING PHYSICIAN: Dr. Dee. 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 Recurrent seizure last night. EEG DIAGNOSIS: Essentially normal during wakefulness. DESCRIPTION OF TRACING: This EEG was done as a bedside recording with simultaneous video analysis of patient movement and behavior. There are a number of muscle movement artifacts throughout the recording, but none of them are significant duration to make interpretation, inadequate. Photic stimulation was performed. Hyperventilation was not. Drowsiness and light sleep were not recorded. Under these conditions, there is evidence of what appears to be a normal background rhythm in the alpha range of up to 10 Hz of maximum frequency and 30 microvolts of maximum amplitude. This is maximum posterior head regions and bilaterally symmetrical. Polymorphic mid frequency theta activity is seen over all head regions without clear focal or regional predominance. Anterior head region maximum bilaterally symmetrical low-voltage fast activity in the beta range is present. Photic stimulation provoked some modest driving response without a photomyogenic or photoparoxysmal component. At no time during the waking tracing is there evidence for potentially epileptogenic activity in the form of polyspike or spike wave bursts, focal sharp waves or focal spikes. INTERPRETATION: This EEG is essentially normal during wakefulness without evidence for focal or generalized encephalopathy and without evidence for potentially epileptogenic activity, but the absence of the latter does not exclude the diagnosis of a seizure disorder.
[2016-05-09 00:17] VITALS: BP 101/64; PULSE 70; TEMP 36.8; O2SAT 92
[2016-05-09] MEDS: LEVETIRACETAM IV 500 MG in DEXTROSE 5% 100ML 100 ML IV SCH (06:10)
[2016-05-09 06:33] LABS: BUN/CREATININE RATIO 11.4 (10-20); CALCIUM 8.3 mg/dl (8.5-10.1); CREATININE 1.3 mg/dl (0.60-1.40); POTASSIUM 3.5 mmol/L (3.5-5.1)
[2016-05-09 07:28] VITALS: BP 103/67; PULSE 70; TEMP 36.6; O2SAT 95
[2016-05-09] MEDS: NICOTINE 14 MG/24 HR TDSY TD SCH (07:35)
[2016-05-09] MEDS: AMLODIPINE BESYLATE 5 MG TAB PO SCH (07:36)
--- NOTE | 2016-05-09 09:46 | Progress Note ---
Medicine Progress Note Date & Time of Visit: May 09, 2016 at 09:11. (Charu Draper PA-C) Subjective Patient seen and examined. States occasionally his "head is swimming" transiently when he changes position. He has been able to ambulate to restroom without issues. His tongue and coccyx area are sore. States Percocet helped with the back pain. Denies need for pain medication on discharge. He is eating full meals. Denies fever, NARANJO, weakness, numbness, chest pain, SOB, abdominal pain, N/V. Patient feels ready to go home. (Charu Draper PA-C) Patient is doing very well. No new seizure activity overnight. Denies any headache, nausea/vomiting or visual changes. (Sebastian Contreras MD) Objective Last 8 Hrs Date Time Temp Pulse Resp B/P Pulse Ox O2 Delivery O2 Flow Rate FiO2 05/09/16 08:00 Room Air 05/09/16 07:28 36.6 70 16 103/67 95 Room Air Physical Exam: General-alert pleasant 45 year old male, no distress Eyes-anicteric, JOHNNY ENT-hearing intact, pharynx normal Neck-supple, trachea midline, no bruits Lungs-CTA bilaterally, no respiratory distress Heart-RRR, no murmur Abdomen-soft, nontender, normal bowel sounds Extremities-no edema, no calf tenderness Neuro-alert, oriented x3, normal affect, grossly nonfocal Laboratory Results: Last 24 Hours Test 05/09/16 05:05 Sodium Level 143 mmol/L Potassium Level 3.5 mmol/L Chloride Level 107 mmol/L Carbon Dioxide Level 29 mmol/L Anion Gap 7.0 mmol/L Blood Urea Nitrogen 15 mg/dl Creatinine 1.30 mg/dl Est Creatinine Clear Calc Drug Dose 91.4 ml/min Estimated GFR () 75.8 Estimated GFR (Non- 65.4 BUN/Creatinine Ratio 11.4 Random Glucose 85 mg/dl Calcium Level 8.3 mg/dl (Charu Draper PA-C) Assessment & Plan NEW ONSET SEIZURE History of recurrent intracranial hemorrhage; previously on Keppra for seizure prophylaxis and d/c approx 6 months ago Was clinically dehydrated with hypokalemia on admission which may have lowered seizure threshold Potassium replaced and IVF hydration given Keppra was resumed Neurology consulted; appreciate input MRI showed no acute change; + old small left temporal hemorrhagic infarct Check EEG- no seizure activity May be discharged today from neurology standpoint given no further events overnight Continue Keppra 500 mg BID No swimming, bathing alone, no heights, no driving x 6 months PT evaluation for balance issue pending- PT aware Follow up with Dr. Wick in clinic in approximately 3 weeks with Keppra level prior to visit HYPERTENSION BP initially elevated; now running in 100s systolic Will continue to hold Losartan on discharge Continue amlodipine DELIA Possibly from ARB, dehydration Losartan held; IVF's administered Cr improved from 1.6 to baseline of 1.2 HYPOKALEMIA Replacement given; now resolved Magnesium WNL on admission ELEVATED TSH Free T4 is WNL DVT PROPHYLAXIS SCD's due to hx of intracranial hemorrhage DISPOSITION F/u with PCP Dr. Nunez F/u with neurology Dr. Wick in approximately 3 weeks with Keppra level prior to discharge Patient seen in collaboration with Dr. Contreras. Please see his addendum. Current Inpatient Medications: Current Inpatient Medications Medications (Trade) Dose Ordered Sig/Marino Route Start Time Stop Time Status Last Admin Dose Admin Levetiracetam 500 mg/Dextrose 105 ml @ 420 mls/hr Q12H IV 05/08/16 06:00 06/07/16 05:59 05/09/16 06:10 420 MLS/HR Lorazepam/Syringe (Ativan Inj/ Syringe) 1 ml @ 0.5 mls/min UD PRN IV 05/08/16 00:15 06/07/16 00:14 Acetaminophen (Tylenol Tab) 650 mg Q4H PRN PO 05/08/16 00:30 06/07/16 00:29 Hydromorphone HCl (Dilaudid Inj) 0.5 mg Q3H PRN IV 05/08/16 00:30 05/22/16 00:29 05/08/16 19:17 0.5 MG Oxycodone/ Acetaminophen (Percocet 5-325mg Tab) 1 tab Q6H PRN PO 05/08/16 00:30 05/22/16 00:29 05/08/16 20:20 1 TAB Ondansetron HCl (Zofran Inj) 4 mg Q6H PRN IV 05/08/16 00:30 06/07/16 00:29 Lorazepam (Ativan Inj) 0.5 mg Q4H PRN IV 05/08/16 00:30 4 00:29 Nicotine (Nicoderm Cq 14MG Patch) 1 patch QAM TD 05/08/16 09:00 06/07/16 08:59 Miscellaneous (Remove Nicoderm Patch) 1 ea HS N/A 05/08/16 21:00 06/07/16 20:59 Amlodipine Besylate (Norvasc Tab) 10 mg DAILY PO 05/08/16 09:00 06/07/16 08:59 05/09/16 07:36 10 MG Gadobutrol 11 mmol 11 mmol UD PRN IV 05/08/16 01:30 05/12/16 01:29 Lorazepam/Syringe (Ativan Inj/ Syringe) 1 ml @ 1 mls/min Q4H PRN IV 05/08/16 01:30 06/07/16 01:29 (Charu Draper, PA-C) Clinically & hemodynamically doing well. Noted input by Neurology as well discussed with them. [facility] Should follow up with Neurology in 1-2 weeks. Explained to patient about it. No driving for 6 months and patient understands. (Sebastian Contreras MD)
[2016-05-09] MEDS ORDERED: LEVE500T13 PO (09:58)
--- NOTE | 2016-05-09 10:20 | Discharge Instructions ---
Discharge Instructions Date of Service May 09, 2016. Admission Reason for Admission: New Onset Seizure Discharge Discharge Diagnosis / Problem: New Onset Seizure Discharge Goals Goal(s): Improve disease control Activity Recommendations Activity Limitations: per Instructions/Follow-up section . Instructions / Follow-Up Instructions / Follow-Up You have been started on Keppra 500 mg twice per day. Please stop taking Losartan until otherwise directed by your primary care provider. Take all other medication as prescribed. No swimming or bathing alone, no heights, no driving for 6 months. You have a follow up appointment with Dr. Nunez on SaturdayMay 14 at 10: 50 am at [facility]. Please call [phone] to set up a follow up appointment with [facility] Neurology (Dr. Wick) for approximately 3 weeks from now. You will need to have blood drawn for Keppra level prior to the appointment. It was a pleasure taking care of you! Call if you have any questions or problems. You can reach a [facility] hospitalist on duty at [facility] 24 hours a day by calling [phone]. Take care of yourself. Charu Draper PA-C [facility] Hospitalist Current Hospital Diet Patient's current hospital diet: AHA Diet (Heart Healthy) Discharge Diet Recommended Diet: AHA Diet (Heart Healthy) Procedures Procedures Performed: EEG Pending Studies Studies pending at discharge: yes List of pending studies: Blood cultures (preliminary result: no growth to date) Medical Emergencies . Who to Call and When: Medical Emergencies: If at any time you feel your situation is an emergency, please call 911 immediately. . Non-Emergent Contact Non-Emergency issues call your: Primary Care Provider . . "Provider Documentation" section prepared by Charu Draper. VTE Core Measure Inpt VTE Proph given/why not?: SCD's
[2016-05-09 10:40] VITALS: BP 103/67; PULSE 70; TEMP 36.6; O2SAT 95
--- NOTE | 2016-05-09 12:27 | Discharge Summary ---
Discharge Summary Date of Service May 09, 2016. Discharge Summary Admission Date: May 07, 2016 at 23:39 Discharge Date: May 09, 2016 Discharge Disposition: Home Principal Diagnosis: New onset seizure Secondary Diagnoses/Problems: DELIA Hypokalemia Procedures: EEG Consultations: Neurology Pending Studies/Follow-Up: Blood cultures- preliminary result no growth to date Medication Reconciliation New Medications: Levetiracetam (Keppra) 500 Mg Tab 1 TAB PO BID for 30 Days, #60 TAB Continued Medications: Amlodipine (Norvasc) 10 Mg Tab 10 MG PO DAILY, TAB Discontinued Medications: Losartan Potassium (Cozaar) 100 Mg Tab 100 MG PO DAILY, TAB Admission Information HPI (per Admitting provider): Medical history is significant for recurrent intracranial hemorrhage, hypertension, and ongoing tobacco abuse. 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 So far no explanation found as per px. Initially on Keppra for seizure prophylaxis. Subsequently, the patient was tapered off Keppra in the middle of last year. Last night, the patient was at the grocery. He went to over to the carlos register. Last memory was feeling fuzzy, saying something to the service cashier that did not make sense. Patient subsequently woke up on the floor, having bit his tongue. He woke up handcuffed placed by some campus police officer grocery bystander who had to handcuff him to restrain him. No chest pain, no shortness of breath. No incontinence. He was brought to the Emergency Room. SBP 160s at the ER. Patient given Amlodipine and Cozaar. . Physical Exam (per Admitting): VITAL SIGNS: Blood pressure was noted to be 160/84 later 130/79, pulse rate 97, RR 15, temperature 36.4 and sats 94 on room air. GENERAL: Noted to be unkempt, obese, in no respiratory distress, looks older for stated age. SKIN: Normal color. HEENT: [place] palpebral conjunctivae. Dry mucosa. Tongue noted to be bruised. NECK: Short neck. LUNGS: Decreased breath sounds. HEART: Regular rate and rhythm. ABDOMEN: Some distention. EXTREMITIES: No edema. no tenderness NEUROLOGIC: No gross focality. Hospital Course NEW ONSET SEIZURE History of recurrent intracranial hemorrhage; previously on Keppra for seizure prophylaxis and d/c approx 6 months ago Was clinically dehydrated with hypokalemia on admission which may have lowered seizure threshold Potassium replaced and IVF hydration given Keppra was resumed Neurology consulted; appreciate input MRI showed no acute change; + old small left temporal hemorrhagic infarct Check EEG- no seizure activity PT evaluation- no gait/coordination issue identified, considered stable for discharge Continue Keppra 500 mg BID No swimming, bathing alone, no heights, no driving x 6 months May be discharged today from neurology standpoint as he is clinically stable Follow up with Dr. Wick in clinic in approximately 3 weeks with Keppra level prior to visit HYPERTENSION BP initially elevated; now running in 100s systolic Losartan initially held for DELIA, will continue to hold on discharge given borderline BP; defer to PCP to possibly resume this medication Continue amlodipine DELIA Possibly from ARB, dehydration Losartan held; IVF's administered Cr improved from 1.6 to baseline of 1.2 HYPOKALEMIA Replacement given; resolved Magnesium WNL on admission ELEVATED TSH Free T4 is WNL DISPOSITION F/u with PCP Dr. Nunez F/u with neurology Dr. Wick in approximately 3 weeks with Keppra level prior to visit ATTENDING NOTE Reviewed above and agree with the suggestions. Patient seen & examined at bedside. Explained the medications and follow up plan in detail and he understands. Sebastian Contreras MD. Total time spent on discharge = 45 minutes This includes examination of the patient, discharge planning, medication reconciliation, and communication with other providers. Discharge Instructions Instructions / Follow-Up You have been started on Keppra 500 mg twice per day. Please stop taking Losartan until otherwise directed by your primary care provider. Take all other medication as prescribed. No swimming or bathing alone, no heights, no driving for 6 months. You have a follow up appointment with Dr. Nunez on SaturdayMay 14 at 10: 50 am at [facility]. Please call [phone] to set up a follow up appointment with [facility] Neurology (Dr. Wick) for approximately 3 weeks from now. You will need to have blood drawn for Keppra level prior to the appointment. It was a pleasure taking care of you! Call if you have any questions or problems. You can reach a [facility] hospitalist on duty at [facility] 24 hours a day by calling [phone]. Take care of yourself. Charu Draper PA-C [facility]
== END 2016-05-09 11:38 | disposition home or self-care (01) | DRG 101 ==
LOC: ENRESERVTM → ENRESERVDT → EDBD 20:57 → C.EDA 20:58 → C.MED 23:39
PROVIDERS: ADMIT Emergency Medicine; ATTEND Emergency Medicine
DX: R56.9 Unspecified convulsions (principal); N17.9 Acute kidney failure, unspecified; T46.5X5A Adverse effect of other antihypertensive drugs, initial encounter; S01.552A Open bite of oral cavity, initial encounter; X58.XXXA Exposure to other specified factors, initial encounter; E87.6 Hypokalemia; E86.0 Dehydration; R94.6 Abnormal results of thyroid function studies; F17.210 Nicotine dependence, cigarettes, uncomplicated; I10 Essential (primary) hypertension; Z86.73 Personal history of transient ischemic attack (TIA), and cerebral infarction without residual deficits; Z91.120 Patient's intentional underdosing of medication regimen due to financial hardship; Z79.899 Other long term (current) drug therapy

== ENCOUNTER 2019-05-02 17:05 | Inpatient (IN) ==
--- OUTSIDE RECORDS SUMMARY | 2019-05-02 17:07 | External Medical Summary | Continuity of Care Document ---
:1970 Author Name Gurdeep Flowers Address Unavailable Unavailable , Care Team Providers Name Role Phone Jude Alvarez M.D. Unavailable [email or web address] Unavailable Unavailable Problems Active medical history not documented Allergies and Adverse Reactions Allergy history not documented Medications Medications not documented Procedures Procedures not documented Immunizations Immunizations not documented Plan of Treatment Planned Observations Planned Goals not documented Results No Known Results Results not documented Encounters Appointment; Kodak Alvarez M.D. 04-Aug-2009 13:30 Encounter Diagnosis: Problem not documented
--- OUTSIDE RECORDS SUMMARY | 2019-05-02 17:08 | External Medical Summary | Continuity of Care Document ---
:1970 Author Name Gurdeep Flowers Address Unavailable Unavailable , Care Team Providers Name Role Phone Jude Alvarez M.D. Unavailable [email or web address], [email or web address] Unavailable Unavailable Problems Active [...]
[2019-05-02 17:53] LABS: Basophils # (auto) 0.06 K/uL (0-0.2); Basophils % (auto) 0.6 %; Eosinophils # (auto) 0.21 K/uL (0-0.5); Hematocrit (blood only) 45.8 % (42-52); Immature Granulocytes # (auto) 0.03 K/uL (0.00-0.02); Immature Granulocytes % (auto) 0.3 %; Lymphocytes # (auto) 2.22 K/uL (1.2-3.4); Lymphocytes % (auto) 20.8 %; Mean Corpuscular Hemoglobin 30.9 pg (25-34); Mean Corpuscular Hgb Conc 37.1 g/dL (32-36); Mean Corpuscular Volume 83.1 fL (80-100); Mean Platelet Volume 9.7 fL (7.4-10.4); Monocytes # (auto) 0.54 K/uL (0.11-0.59); Monocytes % (auto) 5.1 %; Neutrophils % (auto) 71.2 %; Platelet Count 258 K/uL (130-400); RDW Coefficient of Variation 12.7 % (11.5-14.5); RDW Standard Deviation 38.1 fL (36.4-46.3); Red Blood Count 5.51 M/uL (4.7-6.1); White Blood Count 10.66 K/uL (4.8-10.8)
[2019-05-02 18:01] LABS: Alanine Aminotransferase 37 U/L (12-78); Albumin Level 4.2 gm/dl (3.4-5.0); Aspartate Aminotransferase 16 U/L (15-37); BUN Creatinine Ratio 13.5 (10-20); Blood Urea Nitrogen 19 mg/dl (7-18); Calcium 9.2 mg/dl (8.5-10.1); Carbon Dioxide 26 mmol/L (21-32); Chloride 107 mmol/L (98-107); Creatinine Clr Calc Pharmacy 80.1 ml/min; Est GFR (African American) 69.7; Est GFR (Non-African American) 60.1; Glucose 106 mg/dl (70-99); Lipase 208 U/L (73-393); Magnesium 2.1 mg/dl (1.8-2.4); Potassium 3.4 mmol/L (3.5-5.1); Sodium 140 mmol/L (136-145)
[2019-05-02 18:02] LABS: D Dimer 440 ug/L FEU (0-500)
[2019-05-02 18:06] LABS: Albumin Globulin Ratio 1.1 (0.9-2); Alkaline Phosphatase 102 U/L (45-117); Bilirubin,Total 0.5 mg/dl (0.2-1); Globulin 3.9 gm/dl (2.5-4.0); NT Pro B Type Natriuretic Pept 22 pg/ml (0-450); Total Protein 8.1 gm/dl (6.4-8.2); Troponin I < 0.015 ng/ml (0-0.045)
--- NOTE | 2019-05-02 18:12 | XRay Report ---
XR chest 1V portable HISTORY: 48 years-old Male chest pain acute atypical chest pain COMPARISON: Chest radiograph 05/07/2016 TECHNIQUE: Portable AP view of the chest FINDINGS: Cardiomediastinal and hilar silhouettes are within normal limits. No pneumothorax, pleural effusion, focal airspace consolidation or overt pulmonary edema. Bones of the chest appear grossly intact. Dege nerative changes of the shoulders and spine. IMPRESSION: No acute process. ACT 112: Negative or not required by law. The above report was generated using voice recognition software. It may contain grammatical, syntax o r spelling errors. Electronically signed by: Raphael Mendez M.D. 05/02/2019 6:10 PM
[2019-05-02] MEDS ORDERED: NITROGLYCERIN 2% OINTMENT 30GM TUBE EXT STA (19:02)
[2019-05-02] MEDS ORDERED: ALUMINUM/MAGNESIUM SUSP 30 ML UDC PO STA (21:54)
[2019-05-02] MEDS ORDERED: FAMOTIDINE 20MG/5ML IV PUSH IV STA (21:54)
[2019-05-02] MEDS ORDERED: MoRPHine SULFATE 4 MG/ML 1 ML CARP\\VIAL IV STA (22:12)
[2019-05-02] MEDS ORDERED: ACETAMINOPHEN 1,000 MG/100 ML VIAL IV STA (22:13)
[2019-05-02] MEDS ORDERED: SODIUM CHLORIDE 0.9% 1000ML 1,000 ML IV SCH (22:15)
[2019-05-02] MEDS ORDERED: POTASSIUM CHLORIDE 20 MEQ TABCR PO STA (22:38)
[2019-05-02] MEDS ORDERED: Heparin IV Low Dose *NO* Bolus ONE (23:02)
[2019-05-02 23:06] LABS: Partial Thromboplastin Ratio 0.8; Partial Thromboplastin Time 22.9 Seconds (21.0-31.0)
[2019-05-02] MEDS: HEPARIN SODIUM/DEXTROSE 25,000 UNITS/500 ML BAG IV SCH (23:13)
--- NOTE | 2019-05-02 23:27 | History & Physical Report ---
Date of Service May 02, 2019 Assessment & Plan (1) ACS (acute coronary syndrome): hypertension, slightly elevated history spontaneous intracranial hemorrhage as per records history of radial artery occlusion as per records ongoing tobacco abuse history seizures. stable off AED maintenance Rx Hypokalemia PCU Aspirin, beta-nanci for ACS Check lipid profile Trend troponin TTE RE ACS Cardiology consult RE ACS (ER provider already in touch with Dr. Armas.) Replace potassium Nicotine patch PRN DVT prophylaxis. IV heparin Full code Text document was generated using [employer] voice recognition software. It may contain grammatical or spelling errors. Kindly contact undersigned for clarification of any documentation item in question. History of Present Illness Chief Complaint: chest pain Primary Care Provider: Calin Nunez MD History obtained from patient and records. Medical history significant for hypertension, history spontaneous intracranial hemorrhage as per records, history of radial artery occlusion as per records, ongoing tobacco abuse, history seizures. Recent confinement May 2016 for new onset seizures. Patient was discharged on Keppra. Keppra subsequently discontinued outpatient as per patient preference. Patient was loading his truck at work last night when he experienced chest tightness without shortness of breath and diaphoresis. Chest pain not pleuritic. No fever, no chills. No recent tick bites. No cough symptoms. Transient episode a few days ago during sexual activity. At the ER, improved chest discomfort with nitro administration. IV heparin started at the ER for ACS. MEDICAL HISTORY: As above. SURGERIES: neurovascular procedures. FAMILY HISTORY: Hypertension. PERSONAL AND SOCIAL HISTORY: A pack daily. No chronic intake of alcoholic beverages. 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 Allergies Allergy/AdvReac Type Severity Reaction Status Date / Time ceftriaxone Allergy Intermediate HIVES Verified 05/02/19 18:18 Home Medications Home Medications Medication Instructions Recorded Confirmed Type amlodipine 10 mg PO HS 05/02/19 05/02/19 History Past Med/Surg History Medical History (Updated 05/03/19 @ 05:27 by Pietro Dee MD) Acid reflux ACS (acute coronary syndrome) Heartburn HTN (hypertension) Surgical History No pertinent past surgical history Social History Preferred Language: Monegasque Communication Ability: Effective Despatch Clerk Required: No Beliefs That Will Affect Care: None Current Living Situation: Family Other Information That Helps Us Care for You: No Feels Safe at Home: Yes Safety Concerns: Feels Safe At This Time Smoking Status: Current every day smoker Tobacco Type: cigarettes ; Cigarettes Per Day: 20 ; Hx Alcohol Use: No Hx Substance Use: No Review of Systems Review of Systems: As per HPI, all 10 systems reviewed, all other ROS negative Physical Exam Physical Exam: GENERAL: Comfortable, obese, pleasant, no respiratory distress SKIN: Normal color, warm HEENT: [place] palpebral conjunctivae, no ptosis, dry buccal mucosa NECK : Supple, short neck, no tenderness CHEST : CTA, no tenderness HEART : RRR, no obvious murmurs ABDOMEN: Some distention, nontender EXTREMITIES : No LE swelling/tenderness, no other conspicuous deformities noted NEUROLOGIC : Coherent, no facial asymmetry, no other gross focality Results & Data Vital Signs (Past 12 Hours) Vital Signs Temp Pulse Pulse Resp BP BP Pulse Ox 05/02/19 23:00 63 20 131/82 97 05/02/19 22:30 75 19 133/87 97 05/02/19 22:00 71 21 132/78 97 05/02/19 21:30 73 19 162/98 H 96 05/02/19 21:05 74 20 158/105 H 97 05/02/19 20:00 77 20 162/101 H 97 05/02/19 19:50 79 25 H 05/02/19 19:30 77 22 160/102 H 98 05/02/19 19:00 74 26 H 158/109 H 98 05/02/19 18:54 71 17 05/02/19 18:31 75 19 96 05/02/19 18:30 80 17 146/97 H 97 05/02/19 18:20 74 15 99 05/02/19 18:10 76 16 96 05/02/19 18:01 73 24 97 05/02/19 18:00 93 H 24 148/101 H 97 05/02/19 17:50 74 13 97 05/02/19 17:40 76 4 L 97 05/02/19 17:31 77 20 98 05/02/19 17:30 79 8 L 152/103 H 98 05/02/19 17:23 80 13 98 05/02/19 17:22 79 22 168/101 H 05/02/19 17:17 79 15 168/101 H 98 05/02/19 17:07 36.7 C 84 18 153/101 H 96 Laboratory Results Laboratory Results WBC 10.66 K/uL (4.8-10.8) 05/02/19 17: RBC 5.51 M/uL (4.7-6.1) 05/02/19 17:27 Hgb 17.0 g/dL (14.0-18.0) 05/02/19 17:27 Hct 45.8 % (42-52) 05/02/19 17: MCV 83.1 fL (80-100) 05/02/19 17: MCH 30.9 pg (25-34) 05/02/19 17: MCHC 37.1 g/dL (32-36) H 05/02/19 17: RDW Std Deviation 38.1 fL (36.4-46.3) 05/02/19: RDW Coeff of Shyam 12.7 % (11.5-14.5) 05/02/19 17: Plt Count 258 K/uL (130-400) 05/02/19 17: MPV 9.7 fL (7.4-10.4) 05/02/19 17: Immature Gran % (Auto) 0.3 % 05/02/19 17: Neut % (Auto) 71.2 % 05/02/19 17:27 Lymph % (Auto) 20.8 % 05/02/19 17:27 [place] % (Auto) 5.1 % 05/02/19 17: Eos % (Auto) 2.0 % 05/02/19 17: Baso % (Auto) 0.6 % 05/02/19 17: Immature Gran # (Auto) 0.03 K/uL (0.00-0.02) H 05/02/19 17: Neut # (Auto) 7.60 K/uL (1.4-6.5) H 05/02/19 17: Lymph # (Auto) 2.22 K/uL (1.2-3.4) 05/02/19 17:27 [place] # (Auto) 0.54 K/uL (0.11-0.59) 05/02/19 17: Eos # (Auto) 0.21 K/uL (0-0.5) 05/02/19 17:27 Baso # (Auto) 0.06 K/uL (0-0.2) 05/02/19 17:27 APTT 22.9 Seconds (21.0-31.0) 05/02/19 17:27 PTT Ratio 0.8 05/02/19 17:27 D-Dimer 440 ug/L FEU (0-500) 05/02/19 17:27 Sodium 140 mmol/L (136-145) 05/02/19 17:27 Potassium 3.4 mmol/L (3.5-5.1) L 05/02/19 17:27 Chloride 107 mmol/L (98-107) 05/02/19 17:27 Carbon Dioxide 26 mmol/L (21-32) 05/02/19 17:27 Anion Gap 7.0 (3-11) 05/02/19 17:27 BUN 19 mg/dl (7-18) H 05/02/19 17:27 Creatinine 1.37 mg/dl (0.6-1.4) 05/02/19 17:27 Est Cr Clr Drug Dosing 80.1 ml/min 05/02/19 17:27 Est GFR ( Amer) 69.7 05/02/19 17:27 Est GFR (Non-Af Amer) 60.1 05/02/19 17:27 BUN/Creatinine Ratio 13.5 (10-20) 05/02/19 17:27 Glucose 106 mg/dl (70-99) H 05/02/19 17:27 Calcium 9.2 mg/dl (8.5-10.1) 05/02/19 17:27 Magnesium 2.1 mg/dl (1.8-2.4) 05/02/19 17:27 Total Bilirubin 0.5 mg/dl (0.2-1) 05/02/19 17:27 AST 16 U/L (15-37) 05/02/19 17:27 ALT 37 U/L (12-78) 05/02/19 17:27 Alkaline Phosphatase 102 U/L (45-117) 05/02/19 17:27 Troponin I 0.186 ng/ml (0-0.045) H* 05/02/19 21:30 NT-Pro-B Natriuret Pep 22 pg/ml (0-450) 05/02/19 17: Total Protein 8.1 gm/dl (6.4-8.2) 05/02/19 17: Albumin 4.2 gm/dl (3.4-5.0) 05/02/19 17: Globulin 3.9 gm/dl (2.5-4.0) 05/02/19: Albumin/Globulin Ratio 1.1 (0.9-2) 05/02/19: Lipase 208 U/L (73-393) 05/02/19 17: TSH 3.870 uIu/ml (0.300-4.500) 05/02/19 17:27 Diagnostic Findings Chest x-ray : No acute process. EKG as per my interpretation : Rate 70, NSR, normal axis, J-point elevation inferior, anterolateral leads
[2019-05-03] MEDS ORDERED: LORazepam 0.5 MG/1 ML VIAL IV PRN (00:49)
[2019-05-03] MEDS ORDERED: NITROGLYCERIN SL 0.4 MG/TAB TAB SL PRN (00:49)
[2019-05-03] MEDS ORDERED: LACTATED RINGER'S 1,000 ML IV ONE (00:49)
[2019-05-03] MEDS ORDERED: MoRPHine SULFATE 4 MG/ML 1 ML CARP\\VIAL IV PRN (00:49)
[2019-05-03] MEDS ORDERED: PROMETHAZINE HCL 12.5 MG in SODIUM CHLORIDE 0.9% 50 ML IV PRN (00:49)
[2019-05-03] MEDS ORDERED: OXYCODONE HCL IR 5 MG TAB (IMMEDIATE RELEASE) PO PRN (00:49)
[2019-05-03] MEDS ORDERED: ACETAMINOPHEN 325 MG TAB PO PRN (00:49)
[2019-05-03] MEDS: METOPROLOL TARTRATE 25 MG TAB PO SCH ×3 (01:17→21:28)
[2019-05-03 06:18] LABS: Basophils # (auto) 0.06 K/uL (0-0.2); Basophils % (auto) 0.5 %; Eosinophils # (auto) 0.29 K/uL (0-0.5); Eosinophils % (auto) 2.5 %; Hematocrit (blood only) 42.8 % (42-52); Hemoglobin 15.5 g/dL (14.0-18.0); Immature Granulocytes # (auto) 0.03 K/uL (0.00-0.02); Immature Granulocytes % (auto) 0.3 %; Lymphocytes # (auto) 3.49 K/uL (1.2-3.4); Lymphocytes % (auto) 29.7 %; Mean Corpuscular Hemoglobin 30.1 pg (25-34); Mean Corpuscular Hgb Conc 36.2 g/dL (32-36); Mean Corpuscular Volume 83.1 fL (80-100); Mean Platelet Volume 9.9 fL (7.4-10.4); Monocytes # (auto) 0.82 K/uL (0.11-0.59); Neutrophils # (auto) 7.06 K/uL (1.4-6.5); Platelet Count 232 K/uL (130-400); RDW Coefficient of Variation 12.7 % (11.5-14.5); RDW Standard Deviation 38.1 fL (36.4-46.3); Red Blood Count 5.15 M/uL (4.7-6.1); White Blood Count 11.75 K/uL (4.8-10.8)
[2019-05-03 06:25] LABS: Partial Thromboplastin Time 26.4 Seconds (21.0-31.0)
[2019-05-03] MEDS ORDERED: HEPARIN IV BOLUS 4,500 UNITS in SYRINGE 0 ML IV ONE ×3 (06:45→21:15)
[2019-05-03 06:49] LABS: Calcium 8.3 mg/dl (8.5-10.1); Creatinine Clr Calc Pharmacy 101.8 ml/min; Est GFR (Non-African American) 81.1; Potassium 3.5 mmol/L (3.5-5.1)
[2019-05-03 07:00] LABS: Troponin I 2.55 ng/ml (0-0.045)
[2019-05-03] MEDS: ASPIRIN 81 MG ECTAB PO SCH (07:42)
--- NOTE | 2019-05-03 09:16 | Hospitalist Progress Note ---
Date of Service May 03, 2019 Assessment & Plan (1) NSTEMI (non-ST elevated myocardial infarction): troponin increased 2--> 3 echo pending continue Heparin drip continue Metoprolol, ASA, Statin for Cardiac cath in AM hypertension -- monitor while on Metoprolol history spontaneous intracranial hemorrhage as per records -- CT head ordered Neuro consulted re: dual antiplatelet regimen history of radial artery occlusion as per records ongoing tobacco abuse -- counselling history seizures. stable off AED maintenance Rx DVT prophylaxis. IV heparin Disposition pending Admission and Anticipated Discharge Date Admission Date: May 02, 2019 Subjective ff up for chest pain seen resting in bed, comfortable, not in distress, very pleasant denies chest pain during exam no nausea, SOB, palpitations, dizziness inquiring when he can eat no other symptoms Review of Systems Review of Systems: All systems reviewed & are unremarkable except as noted in HPI & below Physical Exam Physical Exam: General- oriented x 3, not in distress, speaks in sentences with no effort or accessory muscle use Eyes- anicteric Neck- no JVD Lungs- clear breath sounds bilaterally, no rales/wheezes Heart- normal rate, regular rhythm; no murmurs Abdomen- normal bowel sounds, nondistended, soft, nontender Extremities- no pretibial edema, no calf tenderness Neuro- alert, oriented x 3; no gross focal neurologic deficits Skin- warm & dry Results & Data ([facility]) Vital Signs (Past 12 Hours) Vital Signs Temp Pulse Pulse Pulse Resp BP BP 05/03/19 08:01 36.5 C 58 L 17 138/86 05/03/19 03:41 36.5 C 58 L 18 123/73 05/03/19 00:51 36.9 C 64 18 152/93 H 05/03/19 00:45 66 05/03/19 00:15 63 20 141/85 H 05/02/19 23:00 63 20 131/82 05/02/19 22:30 75 19 133/87 05/02/19 22:00 71 21 132/78 05/02/19 21:30 73 19 162/98 H Pulse Ox 05/03/19 08:01 98 05/03/19 03:41 96 05/03/19 00:51 95 05/03/19 00:45 05/03/19 00:15 95 05/02/19 23:00 97 05/02/19 22:30 97 05/02/19 22:00 97 05/02/19 21:30 96 Laboratory Results Laboratory Results - last 24 hr 05/02/19 05/02/19 05/02/19 17:27 17:27 17:27 WBC 10.66 RBC 5.51 Hgb 17.0 Hct 45.8 MCV 83.1 MCH 30.9 MCHC 37.1 H RDW Std Deviation 38.1 RDW Coeff of Shyam 12.7 Plt Count 258 MPV 9.7 Immature Gran % (Auto) 0.3 Neut % (Auto) 71.2 Lymph % (Auto) 20.8 [place] % (Auto) 5.1 Eos % (Auto) 2.0 Baso % (Auto) 0.6 Immature Gran # (Auto) 0.03 H Neut # (Auto) 7.60 H Lymph # (Auto) 2.22 [place] # (Auto) 0.54 Eos # (Auto) 0.21 Baso # (Auto) 0.06 ESR APTT PTT Ratio D-Dimer 440 Sodium 140 Potassium 3.4 L Chloride 107 Carbon Dioxide 26 Anion Gap 7.0 BUN 19 H Creatinine 1.37 Est Cr Clr Drug Dosing 80.1 Est GFR ( Amer) 69.7 Est GFR (Non-Af Amer) 60.1 BUN/Creatinine Ratio 13.5 Glucose 106 H Calcium 9.2 Magnesium 2.1 Total Bilirubin 0.5 AST 16 ALT 37 Alkaline Phosphatase 102 Troponin I < 0.015 NT-Pro-B Natriuret Pep 22 Total Protein 8.1 Albumin 4.2 Globulin 3.9 Albumin/Globulin Ratio 1.1 Triglycerides Cholesterol LDL Cholesterol, Calc VLDL Cholesterol, Calc HDL Cholesterol Cholesterol/HDL Ratio Lipase 208 TSH 3.870 05/02/19 05/02/19 05/03/19 17:27 21:30 05:51 WBC 11.75 H RBC 5.15 Hgb 15.5 Hct 42.8 MCV 83.1 MCH 30.1 MCHC 36.2 H RDW Std Deviation 38.1 RDW Coeff of Shyam 12.7 Plt Count 232 MPV 9.9 Immature Gran % (Auto) 0.3 Neut % (Auto) 60.0 Lymph % (Auto) 29.7 [place] % (Auto) 7.0 Eos % (Auto) 2.5 Baso % (Auto) 0.5 Immature Gran # (Auto) 0.03 H Neut # (Auto) 7.06 H Lymph # (Auto) 3.49 H [place] # (Auto) 0.82 H Eos # (Auto) 0.29 Baso # (Auto) 0.06 ESR APTT 22.9 PTT Ratio 0.8 D-Dimer Sodium Potassium Chloride Carbon Dioxide Anion Gap BUN Creatinine Est Cr Clr Drug Dosing Est GFR ( Amer) Est GFR (Non-Af Amer) BUN/Creatinine Ratio Glucose Calcium Magnesium Total Bilirubin AST ALT Alkaline Phosphatase Troponin I 0.186 H* NT-Pro-B Natriuret Pep Total Protein Albumin Globulin Albumin/Globulin Ratio Triglycerides Cholesterol LDL Cholesterol, Calc VLDL Cholesterol, Calc HDL Cholesterol Cholesterol/HDL Ratio Lipase TSH 05/03/19 05/03/19 05/03/19 05:51 05:51 05:51 WBC RBC Hgb Hct MCV MCH MCHC RDW Std Deviation RDW Coeff of Shyam Plt Count MPV Immature Gran % (Auto) Neut % (Auto) Lymph % (Auto) [place] % (Auto) Eos % (Auto) Baso % (Auto) Immature Gran # (Auto) Neut # (Auto) Lymph # (Auto) [place] # (Auto) Eos # (Auto) Baso # (Auto) ESR 6 APTT 26.4 PTT Ratio 1.0 D-Dimer Sodium 140 Potassium 3.5 Chloride 109 H Carbon Dioxide 27 Anion Gap 4.0 BUN 15 Creatinine 1.07 Est Cr Clr Drug Dosing 101.8 Est GFR ( Amer) 94.0 Est GFR (Non-Af Amer) 81.1 BUN/Creatinine Ratio 14.0 Glucose 97 Calcium 8.3 L Magnesium Total Bilirubin AST ALT Alkaline Phosphatase Troponin I 2.550 H* NT-Pro-B Natriuret Pep Total Protein Albumin Globulin Albumin/Globulin Ratio Triglycerides 142 Cholesterol 131 LDL Cholesterol, Calc 74 VLDL Cholesterol, Calc 28 HDL Cholesterol 29 Cholesterol/HDL Ratio 5 Lipase TSH 05/03/19 05/03/19 12:59 13:44 WBC RBC Hgb Hct MCV MCH MCHC RDW Std Deviation RDW Coeff of Shyam Plt Count MPV Immature Gran % (Auto) Neut % (Auto) Lymph % (Auto) [place] % (Auto) Eos % (Auto) Baso % (Auto) Immature Gran # (Auto) Neut # (Auto) Lymph # (Auto) [place] # (Auto) Eos # (Auto) Baso # (Auto) ESR APTT 33.1 H PTT Ratio 1.2 D-Dimer Sodium Potassium Chloride Carbon Dioxide Anion Gap BUN Creatinine Est Cr Clr Drug Dosing Est GFR ( Amer) Est GFR (Non-Af Amer) BUN/Creatinine Ratio Glucose Calcium Magnesium Total Bilirubin AST ALT Alkaline Phosphatase Troponin I 3.070 H* NT-Pro-B Natriuret Pep Total Protein Albumin Globulin Albumin/Globulin Ratio Triglycerides Cholesterol LDL Cholesterol, Calc VLDL Cholesterol, Calc HDL Cholesterol Cholesterol/HDL Ratio Lipase TSH
--- NOTE | 2019-05-03 12:37 | Electrocardiogram Report ---
Test Reason : Blood Pressure : / mmHG Vent. Rate : 080 BPM Atrial Rate : 080 BPM P-R Int : 162 ms QRS Dur : 100 ms QT Int : 370 ms P-R-T Axes : 063 084 057 degrees QTc Int : 426 ms Normal sinus rhythm ST elevation, consider early repolarization, pericarditis, or injury Abnormal ECG When compared with ECG of 07-MAY-2016 21:21, ST elevation now present in Inferior leads ST elevation now present in Anterolateral leads Confirmed by Diego Jones ([id number]) on 05/03/2019 12:36:45 PM Referred By: REFERRED SELF Confirmed By:Diego Jones
--- NOTE | 2019-05-03 12:41 | Electrocardiogram Report ---
Test Reason : Blood Pressure : / mmHG Vent. Rate : 073 BPM Atrial Rate : 073 BPM P-R Int : 162 ms QRS Dur : 100 ms QT Int : 386 ms P-R-T Axes : 058 080 049 degrees QTc Int : 425 ms Normal sinus rhythm ST elevation, consider early repolarization, pericarditis, or injury Abnormal ECG When compared with ECG of 02-MAY-2019 17:14, (unconfirmed) No significant change was found Confirmed by Diego Jones ([id number]) on 05/03/2019 12:40:59 PM Referred By: REFERRED SELF Confirmed By:Diego Jones
--- NOTE | 2019-05-03 12:51 | Electrocardiogram Report ---
Test Reason : Blood Pressure : / mmHG Vent. Rate : 079 BPM Atrial Rate : 079 BPM P-R Int : 164 ms QRS Dur : 088 ms QT Int : 388 ms P-R-T Axes : 048 073 050 degrees QTc Int : 444 ms Normal sinus rhythm ST elevation, consider early repolarization, pericarditis, or injury Abnormal ECG When compared with ECG of 02-MAY-2019 18:05, (unconfirmed) No significant change was found Confirmed by Diego Jones ([id number]) on 05/03/2019 12:51:06 PM Referred By: REFERRED SELF Confirmed By:Diego Jones
--- NOTE | 2019-05-03 12:58 | Electrocardiogram Report ---
Test Reason : Blood Pressure : / mmHG Vent. Rate : 058 BPM Atrial Rate : 058 BPM P-R Int : 170 ms QRS Dur : 092 ms QT Int : 430 ms P-R-T Axes : 062 081 063 degrees QTc Int : 422 ms Sinus bradycardia Early repolarization Otherwise normal ECG When compared with ECG of 02-MAY-2019 22:15, (unconfirmed) No significant change was found Confirmed by Diego Jones ([id number]) on 05/03/2019 12:57:59 PM Referred By: REFERRED SELF Confirmed By:Diego Jones
[2019-05-03 13:24] LABS: Partial Thromboplastin Ratio 1.2; Partial Thromboplastin Time 33.1 Seconds (21.0-31.0)
--- NOTE | 2019-05-03 14:44 | CT Scan Report ---
CT head/brain wo con CLINICAL HISTORY: 48 years-old Male with hx of intracebral hemorrhage. Follow-up study in a patient with history of seizure like activity reported history of prior intracranial hemorrhage. TECHNIQUE: Multiple axial CT images of the head were obtained without contrast. A dose lowering tech nique was utilized adhering to the principles of ALARA. CT DOSE: 537.48 mGy.cm COMPARISON: Head CT and brain MRI 05/07/2016. FINDINGS: No acute intracranial hemorrhage, midline shift, intracranial mass, hydrocephalus, territorial ischem ia or abnormal extra-axial collection. 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 The calvarium is intact. Subcutaneous edema of the scalp. Prominent suboccipital lymph nodes measure up to 6 mm. The paranasal sinuses, mastoid air cells, and middle ear cavities are clear. IMPRESSION: No acute intracranial abnormality. ACT 112: Negative or not required by law. The above report was generated using voice recognition software. It may contain grammatical, syntax o r spelling errors. Electronically signed by: Raphael Mendez M.D. 05/03/2019 2:43 PM
--- NOTE | 2019-05-03 15:02 | Cardiology Consultation ---
Date of Consultation May 03, 2019 Assessment & Plan (1) NSTEMI (non-ST elevated myocardial infarction): Third troponin has come back at 3ng/ml, luckily, the patient remains pain- free. It does appear that he is suffering a non-ST segment elevation myocardial infarction and has been started on appropriate medical therapy including aspirin, heparin, metoprolol and nitroglycerin. We will also add atorvastatin today. Given that he remains pain-free we will likely proceed with cardiac cathet erization in the a.m. Patient agrees with above plan. Will be made n.p.o. after midnight. (2) Tobacco abuse: (3) Spontaneous intraparenchymal intracranial hemorrhage, remote, resolved: X2 Does follow with Dr. Wick as an outpatient Given this history would appreciate our neurology colleagues input in regards to whether or not he would be a candidate for dual antiplatelet therapy should PCI be necessary. We will perform a head CT without contrast at this time to assist in their assessment. 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 (5) Hypertension: Relatively well controlled at this time History of Present Illness Reason for Consultation: Chest pain with abnormal EKG. Requesting Physician: Dr. Cardona Attending Physician: Javan Adler MD History of Present Illness It was my pleasure to see Mr. Sosa in consultation today May 03, 2019. He is a very pleasant 48-year-old gentleman who is not routinely follow with [facility] cardiology. He presented to [facility] on 05/02/2019 with complaints of acute chest pain. 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 He described as a substernal pressure sensation that was rather significant. He denied any associated symptoms specifically denied any associated radiation of the discomfort, shortness of breath, diaphoresis, nausea, palpitations, lightheadedness or dizziness. He states that the discomfort seemed to stay in the center of his chest until he became alarmed and came into the emergency department. In the ER he was given sublingual nitroglycerin with resolution of his chest discomfort. EKG was performed which showed diffuse ST segment elevations. I discussed the case with Dr. cardona on 05/02/2019 and counseled that I do not believe it represented an ST segment elevation myocardial infarction at that time. The patient was pain-free and I agreed with heparin administration and admission to telemetry. Patient states he has been feeling well overnight without a significant recurrences of the chest discomfort. Upon further questioning, he admits he had similar discomfort approximately 1 week ago. He states he was having intercourse with a friend and then approximately an hour later he developed similar chest discomfort. At that time the pressure lasted for approximately 1 hour and then resolved on its own. Allergies Allergy/AdvReac Type Severity Reaction Status Date / Time ceftriaxone Allergy Intermediate HIVES Verified 05/02/19 18:18 Home Medications Home Medications Medication Instructions Recorded Confirmed Type amlodipine 10 mg PO HS 05/02/19 05/02/19 History Patient History Medical History Acid reflux ACS (acute coronary syndrome) Heartburn HTN (hypertension) Surgical History No pertinent past surgical history Social History Preferred Language: Brazilian Communication Ability: Effective Contract Analyst Required: No Beliefs That Will Affect Care: None Current Living Situation: Family Other Information That Helps Us Care for You: No Feels Safe at Home: Yes Safety Concerns: Feels Safe At This Time Smoking Status: Current every day smoker Tobacco Type: cigarettes ; Cigarettes Per Day: 20 ; Hx Alcohol Use: No Hx Substance Use: No Review of Systems Review of Systems: All systems reviewed & are unremarkable except as noted in HPI & below Physical Exam Physical Exam: Physical Exam: General: Awake, alert and oriented x 3. No acute distress. HEENT: Normocephalic, atraumatic. Pupils equal, round and reactive to light and accommodation. Extraocular muscles are intact. Anicteric sclera. Moist mucous membranes. Neck: No JVD. No bruit. Cardiovascular: Regular. No S-4. Normal S-1 and S-2. No S-3. No murmurs, rubs or gallops. Pulmonary: Clear to auscultation bilaterally. No rales, rhonchi, or wheezing. Abdomen: Bowel sounds x 4, soft. No rebound, guarding or tenderness. No organomegaly. Extremities: No clubbing, cyanosis or edema. +2 pedal pulses bilaterally. Skin: Warm and dry. Results & Data ([facility]) Vital Signs (Past 12 Hours) Vital Signs Temp Pulse Pulse Pulse Resp BP Pulse Ox 05/03/19 12:05 36.2 C L 68 18 145/88 H 97 05/03/19 09:52 54 L 05/03/19 08:01 36.5 C 58 L 17 138/86 98 05/03/19 03:41 36.5 C 58 L 18 123/73 96 Laboratory Results Laboratory Results - last 24 hr 05/02/19 05/02/19 05/02/19 17:27 17:27 17:27 WBC 10.66 RBC 5.51 Hgb 17.0 Hct 45.8 MCV 83.1 MCH 30.9 MCHC 37.1 H RDW Std Deviation 38.1 RDW Coeff of Shyam 12.7 Plt Count 258 MPV 9.7 Immature Gran % (Auto) 0.3 Neut % (Auto) 71.2 Lymph % (Auto) 20.8 Fajardo % (Auto) 5.1 Eos % (Auto) 2.0 Baso % (Auto) 0.6 Immature Gran # (Auto) 0.03 H Neut # (Auto) 7.60 H Lymph # (Auto) 2.22 Fajardo # (Auto) 0.54 Eos # (Auto) 0.21 Baso # (Auto) 0.06 ESR APTT PTT Ratio D-Dimer 440 Sodium 140 Potassium 3.4 L Chloride 107 Carbon Dioxide 26 Anion Gap 7.0 BUN 19 H Creatinine 1.37 Est Cr Clr Drug Dosing 80.1 Est GFR ( Amer) 69.7 Est GFR (Non-Af Amer) 60.1 BUN/Creatinine Ratio 13.5 Glucose 106 H Calcium 9.2 Magnesium 2.1 Total Bilirubin 0.5 AST 16 ALT 37 Alkaline Phosphatase 102 Troponin I < 0.015 NT-Pro-B Natriuret Pep 22 Total Protein 8.1 Albumin 4.2 Globulin 3.9 Albumin/Globulin Ratio 1.1 Triglycerides Cholesterol LDL Cholesterol, Calc VLDL Cholesterol, Calc HDL Cholesterol Cholesterol/HDL Ratio Lipase 208 TSH 3.870 05/02/19 05/02/19 05/03/19 17:27 21:30 05:51 WBC 11.75 H RBC 5.15 Hgb 15.5 Hct 42.8 MCV 83.1 MCH 30.1 MCHC 36.2 H RDW Std Deviation 38.1 RDW Coeff of Shyam 12.7 Plt Count 232 MPV 9.9 Immature Gran % (Auto) 0.3 Neut % (Auto) 60.0 Lymph % (Auto) 29.7 Fajardo % (Auto) 7.0 Eos % (Auto) 2.5 Baso % (Auto) 0.5 Immature Gran # (Auto) 0.03 H Neut # (Auto) 7.06 H Lymph # (Auto) 3.49 H Fajardo # (Auto) 0.82 H Eos # (Auto) 0.29 Baso # (Auto) 0.06 ESR APTT 22.9 PTT Ratio 0.8 D-Dimer Sodium Potassium Chloride Carbon Dioxide Anion Gap BUN Creatinine Est Cr Clr Drug Dosing Est GFR ( Amer) Est GFR (Non-Af Amer) BUN/Creatinine Ratio Glucose Calcium Magnesium Total Bilirubin AST ALT Alkaline Phosphatase Troponin I 0.186 H* NT-Pro-B Natriuret Pep Total Protein Albumin Globulin Albumin/Globulin Ratio Triglycerides Cholesterol LDL Cholesterol, Calc VLDL Cholesterol, Calc HDL Cholesterol Cholesterol/HDL Ratio Lipase TSH 05/03/19 05/03/19 05/03/19 05:51 05:51 05:51 WBC RBC Hgb Hct MCV MCH MCHC RDW Std Deviation RDW Coeff of Shyam Plt Count MPV Immature Gran % (Auto) Neut % (Auto) Lymph % (Auto) Fajardo % (Auto) Eos % (Auto) Baso % (Auto) Immature Gran # (Auto) Neut # (Auto) Lymph # (Auto) Fajardo # (Auto) Eos # (Auto) Baso # (Auto) ESR 6 APTT 26.4 PTT Ratio 1.0 D-Dimer Sodium 140 Potassium 3.5 Chloride 109 H Carbon Dioxide 27 Anion Gap 4.0 BUN 15 Creatinine 1.07 Est Cr Clr Drug Dosing 101.8 Est GFR ( Amer) 94.0 Est GFR (Non-Af Amer) 81.1 BUN/Creatinine Ratio 14.0 Glucose 97 Calcium 8.3 L Magnesium Total Bilirubin AST ALT Alkaline Phosphatase Troponin I 2.550 H* NT-Pro-B Natriuret Pep Total Protein Albumin Globulin Albumin/Globulin Ratio Triglycerides 142 Cholesterol 131 LDL Cholesterol, Calc 74 VLDL Cholesterol, Calc 28 HDL Cholesterol 29 Cholesterol/HDL Ratio 5 Lipase TSH 05/03/19 05/03/19 12:59 13:44 WBC RBC Hgb Hct MCV MCH MCHC RDW Std Deviation RDW Coeff of Shyam Plt Count MPV Immature Gran % (Auto) Neut % (Auto) Lymph % (Auto) Fajardo % (Auto) Eos % (Auto) Baso % (Auto) Immature Gran # (Auto) Neut # (Auto) Lymph # (Auto) Fajardo # (Auto) Eos # (Auto) Baso # (Auto) ESR APTT 33.1 H PTT Ratio 1.2 D-Dimer Sodium Potassium Chloride Carbon Dioxide Anion Gap BUN Creatinine Est Cr Clr Drug Dosing Est GFR ( Amer) Est GFR (Non-Af Amer) BUN/Creatinine Ratio Glucose Calcium Magnesium Total Bilirubin AST ALT Alkaline Phosphatase Troponin I 3.070 H* NT-Pro-B Natriuret Pep Total Protein Albumin Globulin Albumin/Globulin Ratio Triglycerides Cholesterol LDL Cholesterol, Calc VLDL Cholesterol, Calc HDL Cholesterol Cholesterol/HDL Ratio Lipase TSH Medications Administered Current Inpatient Medications Acetaminophen (Tylenol) 650 mg PO Q4H PRN PRN Reason: Pain or Fever Stop: 06/02/19 00:48 Last Admin: 05/03/19 01:10 Dose: 650 mg Documented by: Amlodipine Besylate (Norvasc) 10 mg PO [facility] Stop: 06/02/19 20:59 Aspir[facility] ([facility]rin [facility]ctab) [facility] Stop: 06/02/19 08:59 Last Admin: 05/03/19 07:42 Dose: 81 mg Documented by: Heparin Sodium/Dextrose (Heparin Sodium/Dextrose) 25,000 units in 500 mls @ 26 mls/hr IV .[id number] [facility]; Protocol Stop: 06/01/19 23:14 Last Titration: 05/03/19 14:04 Dose: 1,300 units/hr, 26 mls/hr Documented by: Promethazine HCl 12.5 mg/ (Sodium Chloride) 50.5 mls @ 202 mls/hr IV Q6H PRN PRN Reason: Nausea And Vomiting Stop: 06/02/19 00:48 Lorazepam (Ativan) 0.5 mg in 1 mls @ 1 mls/min IV Q4H PRN PRN Reason: Anxiety/Agitation Stop: 06/02/19 00:48 Lactated Ringer's (Lr) 1,000 mls @ 60 mls/hr IV .[id number] [facility] Stop: 05/03/19 17:28 Last Admin: 05/03/19 01:21 Dose: 60 mls/hr Documented by: Metoprolol Tartrate (Lopressor) 12.5 mg PO BID [facility] Stop: 06/01/19 23:44 Last Admin: 05/03/19 07:42 Dose: 12.5 mg Documented by: Morphine Sulfate (Morphine Sulfate) 4 mg IV Q4H PRN PRN Reason: Pain Stop: 05/17/19 00:48 Nitroglycerin (Nitrostat) 0.4 mg SL UD PRN PRN Reason: Chest Pain Stop: 06/02/19 00:48 Oxycodone HCl (Roxicodone Immediate Rel) 5 mg PO Q4H PRN PRN Reason: Pain Stop: 05/17/19 00:48 (1) Hypertension Hypertension type: unspecified Qualified Code(s): I10 - Essential (primary) hypertension
[2019-05-03] MEDS: ATORVASTATIN 40 MG TAB PO SCH (16:28)
[2019-05-03 20:20] LABS: Partial Thromboplastin Ratio 1.4; Partial Thromboplastin Time 36.6 Seconds (21.0-31.0)
[2019-05-03] MEDS ORDERED: AMLODIPINE BESYLATE 5 MG TAB PO SCH (21:00)
[2019-05-03] MEDS: HEPARIN SODIUM/DEXTROSE 25,000 UNITS/500 ML BAG IV SCH (21:44)
[2019-05-04 04:16] LABS: Partial Thromboplastin Ratio 1.9
[2019-05-04 04:41] LABS: Partial Thromboplastin Time 51.5 Seconds (21.0-31.0)
[2019-05-04] MEDS: ASPIRIN 81 MG ECTAB PO SCH (08:05)
[2019-05-04] MEDS: METOPROLOL TARTRATE 25 MG TAB PO SCH (08:05)
[2019-05-04] MEDS: ATORVASTATIN 40 MG TAB PO SCH (08:05)
--- NOTE | 2019-05-04 08:53 | Cardiology Progress Note ---
Date of Service May 04, 2019 Assessment & Plan (1) Radial artery occlusion, left: (2) Spontaneous intraparenchymal intracranial hemorrhage, remote, resolved: (3) NSTEMI (non-ST elevated myocardial infarction): The patient will require a cardiac catheterization to rule out significant coronary artery disease. The patient does have a history of spontaneous intracerebral bleeds that occurred 3 and 4 years ago respectively. The patient now has a history of a seizure disorder and is followed by neurology. Possible diagnoses include fibromuscular dysplasia. In any case, I would like to have neurology's input regarding dual antiplatelet therapy before a drug-eluting stent would be placed. I have explained the risk, benefit and intent of the cardiac catheterization to the patient and he is willing to proceed. He has an occluded left radial artery from previous procedures and also a type of lipomatous growth in the area of the right radial artery, so therefore I am going to take a transfemoral approach. Hopefully the procedure can be completed today. Subjective The patient has no current chest pain and is resting comfortably. Review of Systems Review of Systems: All systems reviewed & are unremarkable except as noted in HPI & below Nothing additional to add. Physical Exam 2 Physical Exam: General: no acute distress and stated age Head: normocephalic, no masses, lesions, tenderness or abnormalities Eyes: conjunctiva are pink and non-injected, sclera clear Neck: supple, no adenopathy, no bruits, normal jugular venous pulse, no hepatojugular reflux Chest: normal shape and normal respiratory effort Lungs: clear to auscultation and percussion Cardiac Exam: - regular rate & rhythm, no murmurs gallops or rubs - normal S1, normal S2 Pulses: 2(+) throughout Abdomen: abdomen soft, non-tender, no abnormal masses and no hepatosplenomegaly Musculoskeletal: no gait disturbance, no joint inflammation, no deforming arthritis Extremities: no edema and no cyanosis, the patient has no left radial pulse and on the right wrist there is a growth at the area of the radial pulse that might be a lipoma and makes palpation of the radial pulse difficult. Neuro: grossly normal exam Results & Data Vital Signs (Past 12 Hours) Vital Signs Temp Pulse Pulse Resp BP Pulse Ox Pulse Ox 05/04/19 07:39 36.7 C 58 L 17 104/65 98 05/04/19 04:40 36.6 C 57 L 20 110/64 96 05/04/19 00:05 67 96 05/03/19 23:59 36.7 C 64 18 114/70 96 Laboratory Results Laboratory Results - last 24 hr 05/03/19 05/03/19 05/03/19 12:59 13:44 19:56 APTT 33.1 H 36.6 H PTT Ratio 1.2 1.4 Sodium Potassium Chloride Carbon Dioxide Anion Gap BUN Creatinine Est Cr Clr Drug Dosing Est GFR ( Amer) Est GFR (Non-Af Amer) BUN/Creatinine Ratio Glucose Calcium Troponin I 3.070 H* 05/04/19 05/04/19 03:45 08:30 APTT 51.5 H* PTT Ratio 1.9 Sodium Pending Potassium Pending Chloride Pending Carbon Dioxide Pending Anion Gap Pending BUN Pending Creatinine Pending Est Cr Clr Drug Dosing Pending Est GFR ( Amer) Pending Est GFR (Non-Af Amer) Pending BUN/Creatinine Ratio Pending Glucose Pending Calcium Pending Troponin I Pending Medications Administered Current Inpatient Medications Acetaminophen (Tylenol) 650 mg PO Q4H PRN PRN Reason: Pain or Fever Stop: 06/02/19 00:48 Last Admin: 05/03/19 01:10 Dose: 650 mg Documented by: Amlodipine Besylate (Norvasc) 10 mg PO [facility] Stop: 06/02/19 20:59 Last Admin: 05/03/19 21:29 Dose: 10 mg Documented by: Aspirin (Ecotrin Ectab) 81 mg PO [facility] Stop: 06/02/19 08:59 Last Admin: 05/04/19 08:05 Dose: 81 mg Documented by: Atorvastatin Calcium (Lipitor) 40 mg PO [facility] Stop: 06/02/19 15:14 Last Admin: 05/04/19 08:05 Dose: 40 mg Documented by: Heparin Sodium/Dextrose (Heparin Sodium/Dextrose) 25,000 units in 500 mls @ 29 mls/hr IV .[id number] [facility]; Protocol Stop: 06/01/19 23:14 Last Titration: 05/04/19 07:14 Dose: 1,450 units/hr, 29 mls/hr Documented by: Promethazine HCl 12.5 mg/ (Sodium Chloride) 50.5 mls @ 202 mls/hr IV Q6H PRN PRN Reason: Nausea And Vomiting Stop: 06/02/19 00:48 Lorazepam (Ativan) 0.5 mg in 1 mls @ 1 mls/min IV Q4H PRN PRN Reason: Anxiety/Agitation Stop: 06/02/19 00:48 Sodium Chloride (Nss 1000ml) 1,000 mls @ 1 mls/hr IV .Q24H [facility] Stop: 06/03/19 08:59 Metoprolol Tartrate (Lopressor) 12.5 mg PO BID [facility] Stop: 06/01/19 23:44 Last Admin: 05/04/19 08:05 Dose: 12.5 mg Documented by: Morphine Sulfate (Morphine Sulfate) 4 mg IV Q4H PRN PRN Reason: Pain Stop: 05/17/19 00:48 Nitroglycerin (Nitrostat) 0.4 mg SL UD PRN PRN Reason: Chest Pain Stop: 06/02/19 00:48 Oxycodone HCl (Roxicodone Immediate Rel) 5 mg PO Q4H PRN PRN Reason: Pain Stop: 05/17/19 00:48
[2019-05-04] MEDS ORDERED: SODIUM CHLORIDE 0.9% 1000ML 1,000 ML IV SCH ×2 (09:00→11:00)
[2019-05-04 09:23] LABS: BUN Creatinine Ratio 15.1 (10-20); Calcium 8.8 mg/dl (8.5-10.1); Est GFR (African American) 86.1; Est GFR (Non-African American) 74.3; Potassium 3.5 mmol/L (3.5-5.1)
[2019-05-04 09:41] LABS: Troponin I 2.4 ng/ml (0-0.045)
[2019-05-04] MEDS ORDERED: fentaNYL citrate 100 MCG/2 ML VIAL ONE (10:06)
[2019-05-04] MEDS ORDERED: MIDAZOLAM HCL 1 MG/ML 2ML VIAL ONE (10:06)
[2019-05-04] MEDS ORDERED: ACETAMINOPHEN 325 MG TAB PO PRN (11:00)
--- NOTE | 2019-05-04 11:00 | Cardiac Catheterization ---
Date of Service May 04, 2019 Cardiac Cath Report Cardiac Cath Report Procedure: 1. Left heart catheterization 2. Coronary angiography 3. Left ventriculogram History: This is a 58-year-old male patient who presented with chest pain and nonspecific EKG changes. His cardiac markers elevated slightly and he was referred for cardiac catheterization. Procedure summary: After informed consent was obtained the patient was taken to the cardiac catheterization lab where he was prepped and draped in the usual manner for a right transfemoral approach. Preformed 5 Nigerien diagnostic catheters were utilized for the coronary angiograms. A 5 Nigerien pigtail catheter was utilized for the left ventriculogram. Following the procedure the patient had the arterial site closed with a minx device and was returned to his room in stable condition. ACC data: Start time 10:14 AM End time 10:40 AM Opening aortic pressure 118/71 Left ventricular pressure 123/20 Closing aortic pressure 126/74 Sedation 1 mg intravenous Versed IV fluid 55 cc normal saline Contrast 120 cc Optiray Fluoroscopy time 3.4 minutes Radiation 1177 mGy Dap 118 mGy/m ACC score 9 Right dominant system Coronary angiography: Selective injections of the left coronary artery revealed the left main trunk to be patent. There is a small ramus branch from the left main trunk which is patent the left circumflex artery consists of a large distal first marginal branch and several smaller distal marginal branches. The left circumflex artery is widely patent. The LAD extends all the way to the apex of the heart. The LAD has minor luminal irregularities and is widely patent. The LAD gives off 2 medium size diagonal branches which are widely patent. Selective injections of the right coronary artery reveal it to be dominant. The right coronary artery is widely patent. Left ventriculogram: The left ventricle is of normal size with normal systolic function. The mitral valve is competent. The aortic root and ascending aorta have normal morphology and diameter. Summary: Widely patent coronary anatomy. Normal left ventricular function. Recommendations: Continued risk factor modification and follow-up with PCP.
[2019-05-04] MEDS: HEPARIN SODIUM/DEXTROSE 25,000 UNITS/500 ML BAG IV SCH (12:23)
--- NOTE | 2019-05-04 13:26 | Emergency Department Note ---
Entered by Valeria Carmona acting as a scribe for History of Present Illness General Chief complaint: Hypertension Stated complaint: CHEST TIGHTNESS, HTN Time Seen by Provider: 05/02/19 17:11 Source: patient History of Present Illness Onset (ago): hour(s) (3:00PM today) Location: chest (central) Radiation: non-radiation Severity: similar to prior episodes (1 episode 3 days ago) Pain Consistency: + intermittent Maximum Pain Intensity: 3 Quality: + other (tightness) Associated symptoms: + denies other symptoms (dizziness, nausea, cold sx) and + cough (baseline secondary to smoking); no diaphoresis and no shortness of breath Treatments prior to arrival: none The patient is a 48 year old male with a history of heartburn, acid reflux, HTN, and everyday smoker who presents to the Emergency Room with complaints of chest pain. 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 He reports that his chest pain returned today around 3:00PM and has been intermittent since onset. The patient states that his chest pain is centralized with no radiation to the arms, back, or jaw. He does not have a personal or family history of cardiac issues. Currently, he is experiencing chest pain which he describes as a tightness and not similar to prior episodes of acid reflux/heartburn. He did not take anything for it [employer]. Of note, the patient has a baseline cough secondary to smoking. He denies dizziness, nausea, diaphoresis, shortness of breath, and cold symptoms. The patient offers no further concerns at this time. Home Medications Home Medications Medication Instructions Recorded Confirmed Type amlodipine 10 mg PO HS 05/02/19 05/02/19 History Allergies Allergy/AdvReac Type Severity Reaction Status Date / Time ceftriaxone Allergy Intermediate HIVES Verified 05/02/19 18:18 Past Med/Surg History Medical History Acid reflux ACS (acute coronary syndrome) Heartburn HTN (hypertension) Surgical History No pertinent past surgical history Social History Preferred Language: Albanian Communication Ability: Effective Head Packager Required: No Beliefs That Will Affect Care: None Current Living Situation: Family Other Information That Helps Us Care for You: No Feels Safe at Home: Yes Safety Concerns: Feels Safe At This Time Smoking Status: Current every day smoker Tobacco Type: cigarettes ; Cigarettes Per Day: 20 ; Hx Alcohol Use: No Hx Substance Use: No Review of Systems See HPI for pertinent positives & negatives. and A total of 10 systems reviewed and were otherwise negative Physical Exam Vital Signs Vital Signs - 24 hr 05/02/19 17:07 05/02/19 17:17 05/02/19 17:22 Temperature 36.7 C Temperature Source Oral Pulse Rate 84 79 Pulse Rate [Apical] 79 Pulse Rate from SpO2 Sensor Pulse Rhythm [Apical] Regular Pulse Strength [Apical] Normal Respiratory Rate 18 15 22 Respiratory Effort / Characteristics Non-Labored Spontaneous Non-Labored Respiratory Depth Normal Normal Respiratory Pattern Regular Blood Pressure 153/101 H 168/101 H Blood Pressure [Left Arm] 168/101 H Blood Pressure Mean 118 118 Blood Pressure Mean [Left Arm] 123 Blood Pressure Position Sitting Blood Pressure Position [Left Arm] Sitting Pulse Oximetry 96 98 Oxygen Delivery Method Room Air Room Air Sepsis Recent Fever Within 48 Hours No Sepsis New/Unexplained Change in Mental Status No Sepsis Action Taken by Nursing No Action Required 05/02/19 17:23 05/02/19 17:30 05/02/19 17:31 Temperature Temperature Source Pulse Rate 80 79 77 Pulse Rate [Apical] Pulse Rate from SpO2 Sensor 80 79 77 Pulse Rhythm [Apical] Pulse Strength [Apical] Respiratory Rate 13 8 L 20 Respiratory Effort / Characteristics Respiratory Depth Respiratory Pattern Blood Pressure 152/103 H Blood Pressure [Left Arm] Blood Pressure Mean 116 Blood Pressure Mean [Left Arm] Blood Pressure Position Blood Pressure Position [Left Arm] Pulse Oximetry 98 98 98 Oxygen Delivery Method Sepsis Recent Fever Within 48 Hours Sepsis New/Unexplained Change in Mental Status Sepsis Action Taken by Nursing 05/02/19 17:40 05/02/19 17:50 05/02/19 18:00 Temperature Temperature Source Pulse Rate 76 74 93 H Pulse Rate [Apical] Pulse Rate from SpO2 Sensor 76 73 89 Pulse Rhythm [Apical] Pulse Strength [Apical] Respiratory Rate 4 L 13 24 Respiratory Effort / Characteristics Respiratory Depth Respiratory Pattern Blood Pressure 148/101 H Blood Pressure [Left Arm] Blood Pressure Mean 122 Blood Pressure Mean [Left Arm] Blood Pressure Position Blood Pressure Position [Left Arm] Pulse Oximetry 97 97 97 Oxygen Delivery Method Sepsis Recent Fever Within 48 Hours Sepsis New/Unexplained Change in Mental Status Sepsis Action Taken by Nursing 05/02/19 18:01 05/02/19 18:10 05/02/19 18:20 Temperature Temperature Source Pulse Rate 73 76 74 Pulse Rate [Apical] Pulse Rate from SpO2 Sensor 74 76 76 Pulse Rhythm [Apical] Pulse Strength [Apical] Respiratory Rate 24 16 15 Respiratory Effort / Characteristics Respiratory Depth Respiratory Pattern Blood Pressure Blood Pressure [Left Arm] Blood Pressure Mean Blood Pressure Mean [Left Arm] Blood Pressure Position Blood Pressure Position [Left Arm] Pulse Oximetry 97 96 99 Oxygen Delivery Method Sepsis Recent Fever Within 48 Hours Sepsis New/Unexplained Change in Mental Status Sepsis Action Taken by Nursing 05/02/19 18:30 05/02/19 18:31 05/02/19 18:54 Temperature Temperature Source Pulse Rate 80 75 71 Pulse Rate [Apical] Pulse Rate from SpO2 Sensor 80 76 Pulse Rhythm [Apical] Pulse Strength [Apical] Respiratory Rate 17 19 17 Respiratory Effort / Characteristics Respiratory Depth Respiratory Pattern Blood Pressure 146/97 H Blood Pressure [Left Arm] Blood Pressure Mean 112 Blood Pressure Mean [Left Arm] Blood Pressure Position Blood Pressure Position [Left Arm] Pulse Oximetry 97 96 Oxygen Delivery Method Sepsis Recent Fever Within 48 Hours Sepsis New/Unexplained Change in Mental Status Sepsis Action Taken by Nursing 05/02/19 19:00 05/02/19 19:30 05/02/19 19:50 Temperature Temperature Source Pulse Rate 74 77 79 Pulse Rate [Apical] Pulse Rate from SpO2 Sensor Pulse Rhythm [Apical] Pulse Strength [Apical] Respiratory Rate 26 H 22 25 H Respiratory Effort / Characteristics Respiratory Depth Respiratory Pattern Blood Pressure 158/109 H 160/102 H Blood Pressure [Left Arm] Blood Pressure Mean 134 123 Blood Pressure Mean [Left Arm] Blood Pressure Position Blood Pressure Position [Left Arm] Pulse Oximetry 98 98 Oxygen Delivery Method Sepsis Recent Fever Within 48 Hours Sepsis New/Unexplained Change in Mental Status Sepsis Action Taken by Nursing 05/02/19 20:00 05/02/19 21:05 05/02/19 21:30 Temperature Temperature Source Pulse Rate 77 73 Pulse Rate [Apical] 74 Pulse Rate from SpO2 Sensor 74 Pulse Rhythm [Apical] Regular Pulse Strength [Apical] Normal Respiratory Rate 20 20 19 Respiratory Effort / Characteristics Non-Labored Spontaneous Respiratory Depth Normal Respiratory Pattern Regular Blood Pressure 162/101 H 162/98 H Blood Pressure [Left Arm] 158/105 H Blood Pressure Mean 112 113 Blood Pressure Mean [Left Arm] 122 Blood Pressure Position Blood Pressure Position [Left Arm] Sitting Pulse Oximetry 97 97 96 Oxygen Delivery Method Room Air Room Air Sepsis Recent Fever Within 48 Hours Sepsis New/Unexplained Change in Mental Status Sepsis Action Taken by Nursing 05/02/19 22:00 05/02/19 22:30 Temperature Temperature Source Pulse Rate 71 75 Pulse Rate [Apical] Pulse Rate from SpO2 Sensor 70 76 Pulse Rhythm [Apical] Pulse Strength [Apical] Respiratory Rate 21 19 Respiratory Effort / Characteristics Respiratory Depth Respiratory Pattern Blood Pressure 132/78 133/87 Blood Pressure [Left Arm] Blood Pressure Mean 88 103 Blood Pressure Mean [Left Arm] Blood Pressure Position Blood Pressure Position [Left Arm] Pulse Oximetry 97 97 Oxygen Delivery Method Room Air Room Air Sepsis Recent Fever Within 48 Hours Sepsis New/Unexplained Change in Mental Status Sepsis Action Taken by Nursing GENERAL: alert, well appearing, well nourished, no distress, non-toxic EYE EXAM: normal conjunctiva, PERRL and EOM's grossly intact OROPHARYNX: no exudate, no erythema, lips, buccal mucosa, and tongue normal and mucous membranes are moist. Poor dentition. NECK: supple, no nuchal rigidity, no adenopathy, non-tender CHEST: Bilateral nipple piercings. No reproducible chest pain on palpation. LUNGS: Decreased breath sounds. No wheezes, rhonchi, or rales. Normal chest wall mechanics HEART: no murmurs, S1 normal and S2 normal ABDOMEN: abdomen soft, non-tender, normo-active bowel sounds, no masses, no rebound or guarding. BACK: Back is symmetrical on inspection and there is no deformity, no midline tenderness, no CVA tenderness. SKIN: no rashes and no bruising UPPER EXTREMITIES: upper extremities are grossly normal. FROM, nml pulses b/l. LOWER EXTREMITIES: No pitting edema. FROM, nml pulses b/l. NEURO EXAM: Normal sensorium, cranial nerves II-XII grossly intact, normal speech, no gross weakness of arms, no gross weakness of legs. Course Course 1725: Past medical records reviewed. The patient was evaluated in room B05. A complete history and physical exam was performed. 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 Continuous Cardiac Monitoring: An order was placed for continuous cardiac monitoring. The monitor shows a rate of 84 with sinus rhythm. 1858: I checked on the patient and he states that he is still having pain. Repeat troponin scheduled. No change in patient's EKGs. Vital signs stable. 2009: ED nurses alerted me that the patient has an increased second troponin. 2224: I spoke to Dr. Dee who will further evaluate the patient. 2229: I re-checked the patient and updated him on plan to admit. The patient verbally expressed understanding and agreement of the treatment plan. The patient will be evaluated for further treatment. 2258: I discussed EKG's and presentation with Dr. Armas, Cardiology. Administered Medications Amlodipine Besylate (Norvasc) 10 mg PO [facility] Stop: 06/02/19 20:59 Last Admin: 05/03/19 21:29 Dose: 10 mg Documented by: [id number] Aspirin (Ecotrin Ectab) 81 mg PO [facility] Stop: 06/02/19 08:59 Last Admin: 05/04/19 08:05 Dose: 81 mg Documented by: [id number] Admin: 05/03/19 07:42 Dose: 81 mg Documented by: [id number] Atorvastatin Calcium (Lipitor) 40 mg PO [facility] Stop: 06/02/19 15:14 Last Admin: 05/04/19 08:05 Dose: 40 mg Documented by: [id number] Admin: 05/03/19 16:28 Dose: 40 mg Documented by: [id number] Sodium Chloride (Nss 1000ml) 1,000 mls @ 103 mls/hr IV [facility][id number] [facility] Stop: 06/03/19 08:59 Last Admin: 05/04/19 09:28 Dose: 103 mls/hr Documented by: [id number] Sodium Chloride (Nss 1000ml) 1,000 mls @ 80 mls/hr IV [facility][id number] [facility] Stop: 06/03/19 10:59 Last Admin: 05/04/19 12:05 Dose: 80 mls/hr Documented by: [id number] Metoprolol Tartrate (Lopressor) 12.5 mg PO BID [facility] Stop: 06/01/19 23:44 Last Admin: 05/04/19 08:05 Dose: 12.5 mg Documented by: [id number] Admin: 05/03/19 21:28 Dose: 12.5 mg Documented by: [id number] Admin: 05/03/19 07:42 Dose: 12.5 mg Documented by: [id number] Admin: 05/03/19 01:17 Dose: 12.5 mg Documented by: [id number] Discontinued Medications Acetaminophen (Tylenol) 650 mg PO Q4H PRN PRN Reason: Pain or Fever Stop: 06/02/19 00:48 Last Admin: 05/03/19 01:10 Dose: 650 mg Documented by: [id number] Hydrox/Mg Hydrox/Simethicone (Maalox) 30 ml PO NOW STA Stop: 05/02/19 21:55 Last Admin: 05/02/19 22:12 Dose: 30 ml Documented by: [id number] Famotidine (Pepcid 20mg Iv Push) 20 mg IV ONE STA Stop: 05/02/19 21:55 Last Admin: 05/02/19 22:12 Dose: 20 mg Documented by: [id number] Fentanyl Citrate (Fentanyl Citrate) Confirm Administered Dose 100 mcg .ROUTE .STK-MED ONE Stop: 05/04/19 10:07 Last Admin: 05/04/19 10:30 Dose: Not Given Documented by: [id number] Heparin Sodium/Dextrose () 1 ea N/A ONE ONE; Protocol Stop: 05/02/19 23:03 Last Admin: 05/02/19 23:23 Dose: Not Given Documented by: [id number] Acetaminophen (Ofirmev) 1,000 mg in 100 mls @ 400 mls/hr IV NOW STA Stop: 05/02/19 22:27 Last Infusion: 05/02/19 22:43 Dose: 0 mls/hr Documented by: [id number] Admin: 05/02/19 22:18 Dose: 400 mls/hr Documented by: [id number] Sodium Chloride (Nss 1000ml) 1,000 mls @ 250 mls/hr IV .Q4H NIRALI Stop: 06/01/19 22:14 Last Infusion: 05/03/19 01:30 Dose: 0 mls/hr Documented by: [id number] Admin: 05/02/19 22:19 Dose: 250 mls/hr Documented by: [id number] Heparin Sodium/Dextrose (Heparin Sodium/Dextrose) 25,000 units in 500 mls @ 0 mls/hr IV .Q0M NIRALI; Protocol Stop: 06/01/19 23:14 Last Admin: 05/04/19 12:23 Dose: Not Given Documented by: [id number] Titration: 05/04/19 12:21 Dose: 0 units/hr, 0 mls/hr Documented by: [id number] Cosigned by: [id number] Titration: 05/04/19 09:40 Dose: 0 units/hr, 0 mls/hr Documented by: [id number] Cosigned by: [id number] Titration: 05/04/19 07:14 Dose: 1,450 units/hr, 29 mls/hr Documented by: [id number] Cosigned by: [id number] Titration: 05/04/19 04:10 Dose: 1,450 units/hr, 29 mls/hr Documented by: [id number] Cosigned by: [id number] Titration: 05/03/19 23:18 Dose: 1,450 units/hr, 29 mls/hr Documented by: [id number] Cosigned by: [id number] Admin: 05/03/19 21:44 Dose: 1,450 units/hr, 29 mls/hr Documented by: [id number] Cosigned by: [id number] Titration: 05/03/19 21:02 Dose: 1,300 units/hr, 26 mls/hr Documented by: [id number] Cosigned by: [id number] Titration: 05/03/19 19:25 Dose: 1,300 units/hr, 26 mls/hr Documented by: [id number] Cosigned by: [id number] Titration: 05/03/19 14:04 Dose: 1,300 units/hr, 26 mls/hr Documented by: [id number] Cosigned by: [id number] Titration: 05/03/19 06:44 Dose: 1,150 units/hr, 23 mls/hr Documented by: [id number] Cosigned by: [id number] Admin: 05/02/19 23:13 Dose: 1,000 units/hr, 20 mls/hr Documented by: [id number] Cosigned by: [id number] Lactated Ringer's (Lr) 1,000 mls @ 60 mls/hr IV .[id number] ONE Stop: 05/03/19 17:28 Last Infusion: 05/03/19 17:28 Dose: 0 mls/hr Documented by: [id number] Admin: 05/03/19 01:21 Dose: 60 mls/hr Documented by: [id number] Heparin Sodium (Porcine) 4,500 (units/ Syringe) 4.5 mls @ 10 mls/min IV ONE ONE Stop: 05/03/19 06:46 Last Admin: 05/03/19 07:41 Dose: 10 mls/min Documented by: [id number] Cosigned by: [id number] Heparin Sodium (Porcine) 4,500 (units/ Syringe) 4.5 mls @ 10 mls/min IV ONE ONE Stop: 05/03/19 14:16 Last Admin: 05/03/19 14:20 Dose: 10 mls/min Documented by: [id number] Cosigned by: [id number] Heparin Sodium (Porcine) 4,500 (units/ Syringe) 4.5 mls @ 10 mls/min IV NOW ONE Stop: 05/03/19 21:16 Last Admin: 05/03/19 21:43 Dose: 10 mls/min Documented by: [id number] Cosigned by: [id number] Midazolam HCl (Versed) Confirm Administered Dose 2 mg .ROUTE .STK-MED ONE Stop: 05/04/19 10:07 Last Increment: 05/04/19 10:30 Dose: 1 mg Documented by: [id number] Morphine Sulfate (Morphine Sulfate) 4 mg IV NOW STA Stop: 05/02/19 22:13 Last Admin: 05/02/19 22:19 Dose: 4 mg Documented by: [id number] Nitroglycerin (Nitro-Bid 2%) 1 inch EXT Q6H STA Stop: 05/02/19 19:03 Last Admin: 05/02/19 19:12 Dose: 1 inch Documented by: [id number] Potassium Chloride (Klor-Con M20) 40 meq PO NOW STA Stop: 05/02/19 22:39 Last Admin: 05/02/19 22:55 Dose: 40 meq Documented by: [id number] Critical Care Time Critical Care Time: Yes Total Critical Care Time: 47 Critical care of 47 min performed to assess and manage high likelihood of life- threatening ACS, involving labs and imaging performed with assessment to evaluation ACS diagnosis with frequent reassessment. This time includes bedside time, treatment discussions with patient/family/consultants, documentation time and excludes procedure time. Medical Decision Making Differential Diagnosis Differential diagnoses includes but is not limited to acute coronary syndrome, myocardial infarction, pericarditis, pulmonary embolus, aortic dissection, pneumonia, pneumothorax, musculoskeletal, shingles, esophageal. Medical Records Attestation: I reviewed the patient's medical records. Home Medications Current Medication List: was personally reviewed by me Laboratory Data Attestation: I reviewed the patient's lab results. Result diagrams: 05/03/19 05:51 05/04/19 08:30 Lab Results 05/02/19 05/02/19 05/02/19 Range/Units 17:27 17:27 17:27 WBC 10.66 (4.8-10.8) K/uL RBC 5.51 (4.7-6.1) M/uL Hgb 17.0 (14.0-18.0) g/dL Hct 45.8 (42-52) % MCV 83.1 (80-100) fL MCH 30.9 (25-34) pg MCHC 37.1 H (32-36) g/dL RDW Std Deviation 38.1 (36.4-46.3) fL RDW Coeff of Shyam 12.7 (11.5-14.5) % Plt Count 258 (130-400) K/uL MPV 9.7 (7.4-10.4) fL Immature Gran % (Auto) 0.3 % Neut % (Auto) 71.2 % Lymph % (Auto) 20.8 % [place] % (Auto) 5.1 % Eos % (Auto) 2.0 % Baso % (Auto) 0.6 % Immature Gran # (Auto) 0.03 H (0.00-0.02) K/uL Neut # (Auto) 7.60 H (1.4-6.5) K/uL Lymph # (Auto) 2.22 (1.2-3.4) K/uL [place] # (Auto) 0.54 (0.11-0.59) K/uL Eos # (Auto) 0.21 (0-0.5) K/uL Baso # (Auto) 0.06 (0-0.2) K/uL APTT (21.0-31.0) Seconds PTT Ratio D-Dimer 440 (0-500) ug/L FEU Sodium 140 (136-145) mmol/L Potassium 3.4 L (3.5-5.1) mmol/L Chloride 107 (98-107) mmol/L Carbon Dioxide 26 (21-32) mmol/L Anion Gap 7.0 (3-11) BUN 19 H (7-18) mg/dl Creatinine 1.37 (0.6-1.4) mg/dl Est Cr Clr Drug Dosing 80.1 ml/min Est GFR ( Amer) 69.7 Est GFR (Non-Af Amer) 60.1 BUN/Creatinine Ratio 13.5 (10-20) Glucose 106 H (70-99) mg/dl Calcium 9.2 (8.5-10.1) mg/dl Magnesium 2.1 (1.8-2.4) mg/dl Total Bilirubin 0.5 (0.2-1) mg/dl AST 16 (15-37) U/L ALT 37 (12-78) U/L Alkaline Phosphatase 102 (45-117) U/L Troponin I < 0.015 (0-0.045) ng/ml NT-Pro-B Natriuret Pep 22 (0-450) pg/ml Total Protein 8.1 (6.4-8.2) gm/dl Albumin 4.2 (3.4-5.0) gm/dl Globulin 3.9 (2.5-4.0) gm/dl Albumin/Globulin Ratio 1.1 (0.9-2) Lipase 208 (73-393) U/L TSH 3.870 (0.300-4.500) uIu/ml 05/02/19 05/02/19 Range/Units 17:27 21:30 WBC (4.8-10.8) K/uL RBC (4.7-6.1) M/uL Hgb (14.0-18.0) g/dL Hct (42-52) % MCV (80-100) fL MCH (25-34) pg MCHC (32-36) g/dL RDW Std Deviation (36.4-46.3) fL RDW Coeff of Shyam (11.5-14.5) % Plt Count (130-400) K/uL MPV (7.4-10.4) fL Immature Gran % (Auto) % Neut % (Auto) % Lymph % (Auto) % [place] % (Auto) % Eos % (Auto) % Baso % (Auto) % Immature Gran # (Auto) (0.00-0.02) K/uL Neut # (Auto) (1.4-6.5) K/uL Lymph # (Auto) (1.2-3.4) K/uL [place] # (Auto) (0.11-0.59) K/uL Eos # (Auto) (0-0.5) K/uL Baso # (Auto) (0-0.2) K/uL APTT 22.9 (21.0-31.0) Seconds PTT Ratio 0.8 D-Dimer (0-500) ug/L FEU Sodium (136-145) mmol/L Potassium (3.5-5.1) mmol/L Chloride (98-107) mmol/L Carbon Dioxide (21-32) mmol/L Anion Gap (3-11) BUN (7-18) mg/dl Creatinine (0.6-1.4) mg/dl Est Cr Clr Drug Dosing ml/min Est GFR ( Amer) Est GFR (Non-Af Amer) BUN/Creatinine Ratio (10-20) Glucose (70-99) mg/dl Calcium (8.5-10.1) mg/dl Magnesium (1.8-2.4) mg/dl Total Bilirubin (0.2-1) mg/dl AST (15-37) U/L ALT (12-78) U/L Alkaline Phosphatase (45-117) U/L Troponin I 0.186 H* (0-0.045) ng/ml NT-Pro-B Natriuret Pep (0-450) pg/ml Total Protein (6.4-8.2) gm/dl Albumin (3.4-5.0) gm/dl Globulin (2.5-4.0) gm/dl Albumin/Globulin Ratio (0.9-2) Lipase (73-393) U/L TSH (0.300-4.500) uIu/ml Imaging Data Radiologist's Impression: Radiology results as stated below per my review and the radiologist's interpretation: XR chest 1V portable HISTORY: 48 years-old Male chest pain acute atypical chest pain COMPARISON: Chest radiograph 05/07/2016 TECHNIQUE: Portable AP view of the chest FINDINGS: Cardiomediastinal and hilar silhouettes are within normal limits. No pneumothorax, pleural effusion, focal airspace consolidation or overt pulmonary edema. Bones of the chest appear grossly intact. Degenerative changes of the shoulders and spine. IMPRESSION: No acute process. ACT 112: Negative or not required by law. The above report was generated using voice recognition software. It may contain grammatical, syntax or spelling errors. Electronically signed by: Raphael Mendez M.D. 05/02/2019 6:10 PM ECG Data Attestation: I personally reviewed and interpreted this ECG as follows: Indication: + chest pain Rate (beats per minute): 80 Rhythm: + sinus rhythm ECG [place]: + Normal ECG Findings: + Other (normal intervals, no acute ischemic changes, however there is a slightly abnormal appearance of ST segments in lead 3 and AVF) Additional Comments: 2nd EKG performed in the ED today at 1745: * Sinus rhythm at 73 bpm * Normal axis * Normal intervals * No PVCs or PACs * Similar ST abnormality again noted * No ST elevations or reciprocal changes Blood Pressure Blood Pressure Findings: Elevated blood pressure Blood Pressure Disposition: further management by hospitalist DENNIS Narrative Patient presenting with chest pain, and concern given age, history of hypertension and tobacco abuse. Patient concerned that his hypertension is contributing to his chest pain was initially requesting medication for this. We will first troponin was negative, patient's EKG very mildly abnormal, however no true ST elevation to activate a heart alert and no other reciprocal changes to suggest that this was more likely. Serial EKGs were performed and showed no changes. Patient continued to be monitored here, he did have persistent pain despite application of Nitropaste, eventually morphine was added which did resolve his symptoms and did improve his blood pressure. Patient second tr oponin unfortunately was elevated. Case was discussed with hospitalist for additional management who requested discussion with cardiology. I discussed the case with cardiology, and they feel at this time less likely ACS, however advised given risk factors to still initiate heparin and they will see in consultation. Patient was made aware of all results, remained hemodynamically stable in the emergency room, had no other recurrent chest pain following administration of morphine. Patient had no other symptoms concerning for evolving dissection, bleed, aneurysm, or infection. Patient with no recent upper respiratory infection, although given the current season, a pericarditis/myocarditis is certainly possible. Patient made aware of all results and was in agreement with plan. Given patient's description of exertional symptoms, I am concerned highly for ACS. I did discuss with the pat ient risks associated with blood thinners. Patient does not currently take any antiplatelet or anticoagulation therapy. Patient does have a very remote history of a spontaneous intracranial hemorrhage. Patient was not given a bolus of heparin, however was started on a drip. I feel given concern for ACS and possible evolving ID, that at this current time the benefit of anticoagulation in the setting of possible ACS outweigh the risk of recurrent ICH. Impression & Plan Chest pain, Hypertension, Elevated troponin, Tobacco abuse, NSTEMI (non-ST elevated myocardial infarction) Discharge Plan Visit Data *Final* Discharge Date/Time: 05/03/19 00:33 Chief Complaint: Hypertension Stated Complaint: CHEST TIGHTNESS, HTN ED Provider: Manju Ramsay Discharge Problem: Chest pain, Hypertension, Elevated troponin, Tobacco abuse, NSTEMI (non-ST elevated myocardial infarction) Patient Disposition: Admitted As Inpatient Discharge Instructions Interventions: ED Discharge Assessment Last Done: 05/03/19 00:33 Discharge Problem: Chest pain Qualifiers: Chest pain type: unspecified Qualified Code(s): R07.9 - Chest pain, unspecified Hypertension Qualifiers: Hypertension type: unspecified Qualified Code(s): I10 - Essential (primary) hyp ertension The scribe's documentation has been prepared under my direction and personally reviewed by me in its entirety. I confirm that the note above accurately reflects all work, treatment, procedures, and medical decision making performed by me.
--- NOTE | 2019-05-04 13:27 | Communication Note ---
Date of Service: May 04, 2019 Cardiac catheterization revealed widely patent coronary artery anatomy without obstruction. No cardiac source for chest discomfort found. No further cardiac testing or intervention is necessary at this time. Recommend follow-up with PCP as an outpatient to evaluate for other possible sources of chest discomfort. No medication changes will be made at this time no cardiac follow-up as an outpatient is necessary.
--- NOTE | 2019-05-04 16:49 | Communication Note ---
Date of Service: May 04, 2019 /: PATIENT JOEL MENDEZ WAS ADMITTED [facility]NAGEMENT FROM April to May 04, 2019. PATIENT IS ADVISED TO REST AT HOME AND FOLLOW UP WITH THE PRIMARY CARE PHYSICIAN FIRST THIS WEEK PRIOR TO RETURNING TO WORK. THANK YOU. SINCERELY, HORACE MAYES MD ATTENDING PHYSICIAN
--- NOTE | 2019-05-04 16:52 | Hospitalist Progress Note ---
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 No cardiac source for chest discomfort found. No further cardiac testing or intervention is necessary at this time. Recommend follow-up with PCP as an outpatient to evaluate for other possible sources of chest discomfort. No medication changes will be made at this time no cardiac follow-up as an outpatient is necessary. placed on Heparin drip, Metoprolol, ASA, Statin patient remained chest pain free while admitted ff up with PCP in 1 week Hypertension -- patient admitted with elevated BP systolic 170s Metoprolol 12.5mg BID added to usual Amlodipine -- BP improved continue Metoprolol, monitor as outpatient History spontaneous intracranial hemorrhage as per records -- CT head: No acute intracranial hemorrhage, midline shift, intracranial mass, hydrocephalus, territorial ischemia or abnormal extra-axial collection. 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 The calvarium is intact. Subcutaneous edema of the scalp. Prominent suboccipital lymph nodes measure up to 6 mm. The paranasal sinuses, mastoid air cells, and middle ear cavities are clear. IMPRESSION: No acute intracranial abnormality. History of radial artery occlusion as per records ongoing tobacco abuse -- counselling done history seizures. -- stable off AED maintenance Rx DVT prophylaxis. IV heparin given Disposition d/c home ff up with PCP in1 week plan of care discussed with patient in detail and at length all questions answered he is understanding, agreeable, comfortable with plan of care Admission and Anticipated Discharge Date Admission Date: May 02, 2019 Subjective ff up for chest pain seen resting in bed, comfortable chest pain free since admission no dyspnea, palpitations ,dizziness ambulating in the halls with no problems no other symptoms Review of Systems Review of Systems: All systems reviewed & are unremarkable except as noted in HPI & below Physical Exam Physical Exam: General- oriented x 3, not in distress, speaks in sentences with no effort or accessory muscle use Eyes- anicteric Neck- no JVD Lungs- clear breath sounds bilaterally, no rales/wheezes Heart- normal rate, regular rhythm; no murmurs Abdomen- normal bowel sounds, nondistended, soft, nontender Extremities- no pretibial edema, no calf tenderness Neuro- alert, oriented x 3; no gross focal neurologic deficits Skin- warm & dry Results & Data ([facility]) Vital Signs (Past 12 Hours) Vital Signs Temp Pulse Resp BP Pulse Ox 05/04/19 15:02 37.1 C 67 20 122/83 95 05/04/19 13:45 68 16 120/79 98 05/04/19 12:45 65 16 118/83 97 05/04/19 12:15 59 L 16 124/91 98 05/04/19 11:45 55 L 16 138/94 97 05/04/19 11:30 58 L 16 142/74 H 97 05/04/19 11:15 36.8 C 58 L 18 134/88 98 05/04/19 11:00 55 L 18 115/73 95 05/04/19 10:45 58 L 18 114/79 95 05/04/19 07:39 36.7 C 58 L 17 104/65 98 Laboratory Results all noted and reviewed
--- NOTE | 2019-05-06 13:06 | Discharge Summary ---
Date of Service May 06, 2019 Admission HPI Per Admitting Provider History obtained from patient and records. Medical history significant for hypertension, history spontaneous intracranial hemorrhage as per records, history of radial artery occlusion as per records, ongoing tobacco abuse, history seizures. Recent confinement May 2016 for new onset seizures. Patient was discharged on Keppra. Keppra subsequently discontinued outpatient as per patient preference. Patient was loading his truck at work last night when he experienced chest tightness without shortness of breath and diaphoresis. Chest pain not pleuritic. No fever, no chills. No recent tick bites. No cough symptoms. Transient episode a few days ago during sexual activity. At the ER, improved chest discomfort with nitro administration. IV heparin started at the ER for ACS. MEDICAL HISTORY: As above. SURGERIES: neurovascular procedures. FAMILY HISTORY: Hypertension. PERSONAL AND SOCIAL HISTORY: A pack daily. No chronic intake of alcoholic beverages. 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 Admission Exam Per Admitting Provider GENERAL: Comfortable, obese, pleasant, no respiratory distress SKIN: Normal color, warm HEENT: [place] palpebral conjunctivae, no ptosis, dry buccal mucosa NECK : Supple, short neck, no tenderness CHEST : CTA, no tenderness HEART : RRR, no obvious murmurs ABDOMEN: Some distention, nontender EXTREMITIES : No LE swelling/tenderness, no other conspicuous deformities noted NEUROLOGIC : Coherent, no facial asymmetry, no other gross focality Principal Diagnosis CHEST PAIN, ACUTE CORONARY SYNDROME RULED OUT Discharge Exam General- oriented x 3, not in distress, speaks in sentences with no effort or accessory muscle use Eyes- anicteric Neck- no JVD Lungs- clear breath sounds bilaterally, no rales/wheezes Heart- normal rate, regular rhythm; no murmurs Abdomen- normal bowel sounds, nondistended, soft, nontender Extremities- no pretibial edema, no calf tenderness Neuro- alert, oriented x 3; no gross focal neurologic deficits Skin- warm & dry Discharge Data Allergies Allergy/AdvReac Type Severity Reaction Status Date / Time ceftriaxone Allergy Intermediate HIVES Verified 05/02/19 18:18 Consultations 05/02/19 22:27 ED Decision to Admit Stat 05/03/19 00:49 Consult Cardiology Routine 05/04/19 09:00 Consult Cardiac Catheterization Routine Procedures Performed Operation Date: 05/04/19 09:30 Actual Procedures p Cath, Left with Cors and Vent - Panchito Corcoran DO s Cineradiography w/Routine Exam - Panchito Corcoran DO Ordered Studies 05/03/19 12:58 CT head/brain wo con Routine 05/04/19 10:01 CL Cath Imgs for PACS use only Routine Hospital Course (1) NSTEMI (non-ST elevated myocardial infarction): troponin increased 2--> 3 EKG: diffuse ST segment elevation but patient 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 No cardiac source for chest discomfort found. No further cardiac testing or intervention is necessary at this time. Recommend follow-up with PCP as an outpatient to evaluate for other possible sources of chest discomfort. No medication changes will be made at this time no cardiac follow-up as an outpatient is necessary. placed on Heparin drip, Metoprolol, ASA, Statin patient remained chest pain free while admitted ff up with PCP in 1 week Hypertension -- patient admitted with elevated BP systolic 170s Metoprolol 12.5mg BID added to usual Amlodipine -- BP improved continue Metoprolol, monitor as outpatient History spontaneous intracranial hemorrhage as per records -- CT head: No acute intracranial hemorrhage, midline shift, intracranial mass, hydrocephalus, territorial ischemia or abnormal extra-axial collection. 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 The calvarium is intact. Subcutaneous edema of the scalp. Prominent suboccipital lymph nodes measure up to 6 mm. The paranasal sinuses, mastoid air cells, and middle ear cavities are clear. IMPRESSION: No acute intracranial abnormality. History of radial artery occlusion as per records ongoing tobacco abuse -- counselling done history seizures. -- stable off AED maintenance Rx DVT prophylaxis. IV heparin given Disposition d/c home ff up with PCP in1 week plan of care discussed with patient in detail and at length all questions answered he is understanding, agreeable, comfortable with plan of care Total Time Total Time Spent Total Time Spent (In Minutes): > 60 minutes Discharge Plan Discharge Items Patient Disposition: Home - Self-Care Reason For Visit: ACS Discharge Diagnosis: CHEST PAIN, HYPERTENSION Activity: As commented below Activity Comment: Resume activity gradually as tolerated, no heavy exertion Lifting: Wait until after follow-up appointment Sexual Activity: Wait until after follow-up appointment Exercise/Sports: Wait until after follow-up appointment Driving/Machine Use: No driving if you are having chest pain Non-emergency contact: Primary Care Provider Call non-emergency contact if: you have any medication questions, your symptoms worsen, your pain is not controlled, your pain is worsening, your pain is unusual for you, your pain is concerning for you and you have a fever Diet: Heart Healthy Addtl Attending Provider Instructions: Your new medication is metoprolol tartrate 12.5 mg p.o. twice a day for blood pressure control. Follow a low-salt diet. No smoking or alcohol. Please drink plenty of water. Please stay well-hydrated. Do not take NSAIDs such as ibuprofen, naproxen, etc. Please follow-up with Dr. Laquita Marquez on May at 11:05 AM Call primary care physician or return to the ER immediately if with recurrence of symptoms, Weakness, dizziness, lightheadedness. Pending Studies at Discharge: No Stand-Alone Forms: [employer], Work/School Release (Inpt), Smoking Cessation Medications and DC Order Prescriptions: New metoprolol tartrate 25 mg Tablet 12.5 mg PO BID 30 Days Qty: 30 RF: 2 Continued amlodipine 10 mg tablet 10 mg PO HS RF: 0 Discharge Orders: Discharge Order (Routine); Ordered 05/04/19 Ordered By: Javan Butler/Other Patient Handouts: Cardiac Catheterization Admission Data Admit Date/Time: 05/02/19 23:31 Attending Provider: Javan Adler Admit Provider: Pietro Dee Primary Care Provider: Calin Nunez Other Providers: Deejay Armas Other Interventions: Discharge Summary Assessment (RN) Last Done: 05/04/19 17:08 DC Date/Time DO NOT enter until pt leaves facility: 05/04/19 17:30
== END 2019-05-04 17:30 | disposition home or self-care (01) | DRG 282 ==
LOC: ED 17:05 → 2S 23:31

== ENCOUNTER 2019-08-01 15:49 | Inpatient (IN) ==
[2019-08-01] MEDS ORDERED: ACETAMINOPHEN 500 MG TAB PO STA (16:14)
--- NOTE | 2019-08-01 16:19 | Emergency Department Note ---
Impression & Plan Precordial chest pain, Elevated troponin ED Provider Note NAME: JOEL MENDEZ AGE: 49 SEX: M : 1970 ARRIVES VIA: Walk-In INFORMANT: [Patient] ED PROVIDER(S): [Damion Fung MD] CHIEF COMPLAINT: Chest pain HISTORY OF PRESENT ILLNESS: Patient is a 49-year-old male presents the ER with about 1.5 hours of right sided chest pain. The pain became fairly severe at 1 point up to an 8/10. It is now a 2/10. The pain was described as waxing and waning yet constant. The pain reduced spontaneously. The patient took no medications to help things. He was not short of breath, he did have a slight sweat. No nausea. 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 The patient has not had recent exertional chest pain or dyspnea. He states that his pain today once it started would come and go, nothing seemed to make it better or worse, exertion did not make it worse. The patient was in our hospital recently for what he describes as an IL. He states that they found minimal plaque on cath, no intervention was required. He is not on aspirin because he has a history of intracranial bleeding. The patient had very similar right-sided chest pain last evening that resolved spontaneously. He had no recurrence of pain until about 1.5 hours ago. REVIEW OF SYSTEMS: See HPI for pertinent positives and negatives. A total of ten systems were reviewed and were otherwise negative. PMHx/PSHx: See Below SOCIAL HISTORY: See Below. PHYSICAL EXAM: GENERAL: Patient is in no acute distress. HEENT: No acute trauma, normocephalic atraumatic, mucous membranes moist, no nasal congestion, no scleral icterus. NECK: No stridor, no adenopathy, no meningismus, trachea is midline. LUNGS: Clear to auscultation bilaterally, no wheeze, no rhonchi, breath sounds equal. HEART: Without murmurs gallops or rubs, regular rate and rhythm. Chest: Nontender chest wall. ABDOMEN: Soft, nontender, bowel sounds positive, no hernias, no peritonitis. EXTREMITIES: No cyanosis or edema, full range of motion of all the joints without pain or difficulty, no signs for acute trauma. NEUROLOGIC: Oriented x 3, no acute motor or sensory deficits, no focal weakness. SKIN: No rash, no jaundice, no diaphoresis. DIFFERENTIAL DIAGNOSIS: Cardiac ischemia, aortic dissection, pulmonary embolism, pneumothorax, pneumonia, pericarditis, myocarditis, esophageal rupture, GERD, cholecystitis, pancreatitis, musculoskeletal, as well as other pathologies. EMERGENCY DEPARTMENT COURSE/PROCEDURES: ECG: Indication was chest pain. The EKG shows a normal sinus rhythm with a rate of 60. There is no ST elevation, there is no PVC. The QTc is 394. Continuous Cardiac Monitoring: An order was placed for continuous cardiac monitoring. The monitor shows a rate of 57 with sinus bradycardia. MEDICAL DECISION MAKING: There is no leukocytosis. No concerning anemia. No coagulopathy. No significant electrolyte abnormality or kidney failure. There is no concerning liver enzyme elevation. Lipase testing is normal. EKG shows a sinus rhythm, no acute ischemia. Cardiac enzyme testing x1 does show an elevation. This elevation is consistent with cardiac injury or strain. Chest film does not show pneumonia or CHF. The patient presents with precordial chest pain which has nearly resolved. He does have a history of IL. He does have a troponin elevation today and I do think a hospital stay and further cardiac work-up is warranted. I did review the patient's recent hospital stay. He did have a cardiac catheterization that did not show any significant coronary stenosis. No stenting was done. He was eventually discharged home. The patient is not to take aspirin, I did give him some oral Tylenol for his residual chest discomfort. He did not want any nitroglycerin as it gives him a severe headache. Further cardiac work-up is needed. The cause for his presentation is not completely clear. I did speak to the patient and case management. The on-call hospitalist was consulted. 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 Beliefs That Will Affect Care: None Current Living Situation: Family Feels Safe at Home: Yes Smoking Status: Current every day smoker Tobacco Type: cigarettes ; Cigarettes Per Day: 20 ; Hx Alcohol Use: No Hx Substance Use: No Allergies Allergies Allergy/AdvReac Type Severity Reaction Status Date / Time ceftriaxone Allergy Severe HIVES Verified 07/25/19 04:04 Home Meds Home Medications Medication Instructions Recorded Confirmed amlodipine 10 mg PO HS 05/02/19 08/01/19 Previous Rx's Medication Instructions Recorded metoprolol tartrate 12.5 mg PO BID 30 Days #30 tab 05/04/19 Results & Data (ED) Vital Signs Vital Signs - 24 hr 08/01/19 15:52 08/01/19 16:36 08/01/19 17:00 Temperature 37.1 C Temperature Source Oral Pulse Rate 65 63 60 Respiratory Rate 20 19 12 Respiratory Effort / Characteristics Non-Labored Respiratory Depth Normal Respiratory Pattern Regular Blood Pressure 129/91 Blood Pressure Mean 103 Pulse Oximetry 98 Oxygen Delivery Method Room Air Sepsis Recent Fever Within 48 Hours No Sepsis New/Unexplained Change in Mental Status No Sepsis Action Taken by Nursing No Action Required 08/01/19 17:30 08/01/19 17:33 08/01/19 17:34 Temperature Temperature Source Pulse Rate 60 67 59 L Respiratory Rate 16 16 14 Respiratory Effort / Characteristics Respiratory Depth Respiratory Pattern Blood Pressure 119/81 Blood Pressure Mean 89 Pulse Oximetry Oxygen Delivery Method Sepsis Recent Fever Within 48 Hours Sepsis New/Unexplained Change in Mental Status Sepsis Action Taken by Nursing 08/01/19 18:00 Temperature Temperature Source Pulse Rate 61 Respiratory Rate 14 Respiratory Effort / Characteristics Respiratory Depth Respiratory Pattern Blood Pressure Blood Pressure Mean Pulse Oximetry Oxygen Delivery Method Sepsis Recent Fever Within 48 Hours Sepsis New/Unexplained Change in Mental Status Sepsis Action Taken by Snf Medications Current Medication List: was personally reviewed by me Laboratory Data Attestation: I reviewed the patient's lab results. Result diagrams: 08/01/19 16:00 08/01/19 16:00 Lab Results 08/01/19 08/01/19 08/01/19 Range/Units 16:00 16:00 16:00 WBC 10.95 H (4.8-10.8) K/uL RBC 5.50 (4.7-6.1) M/uL Hgb 16.7 (14.0-18.0) g/dL Hct 45.1 (42-52) % MCV 82.0 (80-100) fL MCH 30.4 (25-34) pg MCHC 37.0 H (32-36) g/dL RDW Std Deviation 37.7 (36.4-46.3) fL RDW Coeff of Shyam 12.8 (11.5-14.5) % Plt Count 251 (130-400) K/uL MPV 10.1 (7.4-10.4) fL Immature Gran % (Auto) 0.4 % Neut % (Auto) 66.3 % Lymph % (Auto) 22.8 % Sac % (Auto) 6.9 % Eos % (Auto) 3.0 % Baso % (Auto) 0.6 % Immature Gran # (Auto) 0.04 H (0.00-0.02) K/uL Neut # (Auto) 7.25 H (1.4-6.5) K/uL Lymph # (Auto) 2.50 (1.2-3.4) K/uL Sac # (Auto) 0.76 H (0.11-0.59) K/uL Eos # (Auto) 0.33 (0-0.5) K/uL Baso # (Auto) 0.07 (0-0.2) K/uL PT 11.0 (9.0-12.0) Seconds INR 1.0 (0.9-1.1) APTT 24.1 (21.0-31.0) Seconds PTT Ratio 0.9 Sodium 138 (136-145) mmol/L Potassium 3.9 (3.5-5.1) mmol/L Chloride 109 H (98-107) mmol/L Carbon Dioxide 24 (21-32) mmol/L Anion Gap 5.0 (3-11) BUN 19 H (7-18) mg/dl Creatinine 1.38 (0.6-1.4) mg/dl Est Cr Clr Drug Dosing 81.4 ml/min Est GFR ( Amer) 68.6 Est GFR (Non-Af Amer) 59.2 BUN/Creatinine Ratio 13.8 (10-20) Glucose 96 (70-99) mg/dl Calcium 9.5 (8.5-10.1) mg/dl Total Bilirubin 0.5 (0.2-1) mg/dl AST 23 (15-37) U/L ALT 43 (12-78) U/L Alkaline Phosphatase 90 (45-117) U/L Troponin I 0.405 H* (0-0.045) ng/ml Total Protein 7.7 (6.4-8.2) gm/dl Albumin 4.2 (3.4-5.0) gm/dl Globulin 3.5 (2.5-4.0) gm/dl Albumin/Globulin Ratio 1.2 (0.9-2) Lipase 199 (73-393) U/L Administered Medications Discontinued Medications Acetaminophen (Tylenol) 1,000 mg PO NOW STA Stop: 08/01/19 16:15 Last Admin: 08/01/19 16:31 Dose: 1,000 mg Documented by: [id number] Imaging Data Radiologist's Impression: XR chest 1V portable CLINICAL HISTORY: Atypical chest pain COMPARISON STUDY: 07/25/2019 FINDINGS: The cardiac and mediastinal contours remain stable. There is slight interstitial thickening with a basilar predominance similar to the prior study. There is no overt failure. There are no pleural effusions. There is no focal pulmonary consolidation.[ IMPRESSION: No active disease in the chest. Blood Pressure Blood Pressure Findings: Normal blood pressure Discharge Plan Visit Data *Final* Discharge Date/Time: 08/01/19 18:35 Chief Complaint: Chest Pain Stated Complaint: CHEST PAIN ED Provider: Damion Fung Discharge Problem: Precordial chest pain, Elevated troponin Patient Disposition: Admitted As Inpatient Condition: Good Discharge Instructions Interventions: ED Discharge Assessment Last Done: 08/01/19 18:35
[2019-08-01 16:35] LABS: Basophils # (auto) 0.07 K/uL (0-0.2); Basophils % (auto) 0.6 %; Eosinophils # (auto) 0.33 K/uL (0-0.5); Hematocrit (blood only) 45.1 % (42-52); Hemoglobin 16.7 g/dL (14.0-18.0); Immature Granulocytes # (auto) 0.04 K/uL (0.00-0.02); Immature Granulocytes % (auto) 0.4 %; Lymphocytes % (auto) 22.8 %; Mean Corpuscular Hemoglobin 30.4 pg (25-34); Mean Platelet Volume 10.1 fL (7.4-10.4); Monocytes # (auto) 0.76 K/uL (0.11-0.59); Monocytes % (auto) 6.9 %; Neutrophils # (auto) 7.25 K/uL (1.4-6.5); Neutrophils % (auto) 66.3 %; Platelet Count 251 K/uL (130-400); RDW Coefficient of Variation 12.8 % (11.5-14.5); RDW Standard Deviation 37.7 fL (36.4-46.3); White Blood Count 10.95 K/uL (4.8-10.8)
[2019-08-01 16:41] LABS: Albumin Level 4.2 gm/dl (3.4-5.0); BUN Creatinine Ratio 13.8 (10-20); Calcium 9.5 mg/dl (8.5-10.1); Creatinine Clr Calc Pharmacy 81.4 ml/min; Est GFR (African American) 68.6; Est GFR (Non-African American) 59.2; Potassium 3.9 mmol/L (3.5-5.1)
--- NOTE | 2019-08-01 16:46 | XRay Report ---
XR chest 1V portable CLINICAL HISTORY: Atypical chest pain COMPARISON STUDY: 07/25/2019 FINDINGS: The cardiac and mediastinal contours remain stable. There is slight interstitial thickening with a basilar predominance similar to the prior study. There is no overt failure. There are no pleu ral effusions. There is no focal pulmonary consolidation.[ IMPRESSION: No active disease in the chest. ACT 112: Negative or not required by law. Electronically signed by: Roc Moffett M.D. 08/01/2019 4:45 PM
[2019-08-01 16:47] LABS: Partial Thromboplastin Ratio 0.9; Partial Thromboplastin Time 24.1 Seconds (21.0-31.0)
[2019-08-01 16:53] LABS: Albumin Globulin Ratio 1.2 (0.9-2); Bilirubin,Total 0.5 mg/dl (0.2-1); Globulin 3.5 gm/dl (2.5-4.0); Total Protein 7.7 gm/dl (6.4-8.2); Troponin I 0.405 ng/ml (0-0.045)
--- NOTE | 2019-08-01 18:04 | History & Physical Report ---
Date of Service August 01, 2019 Assessment & Plan (1) NSTEMI (non-ST elevated myocardial infarction): NSTEMI (non-ST elevated myocardial infarction): presented with chest heaviness , SOB , sweating with exertion , lifting heavy wt symptoms has resolved Troponin 0.405 recent admission at [facility] 05/03/19 with similar cardiac symptoms ; chest pain with exertion /DOSHI s/p Cardiac Cath on 05/03 : Cardiac catheterization revealed widely patent coronary artery anatomy without obstruction. No cardiac source for chest discomfort found. pt will be monitored in PCU Cardiology consulted serial cardiac markers ordered cont Metoprolol , added Aspirin 81 mg daily ( hx of remote intracranial bleed , CT on 05/21 : no intracranial bleed ) Hypertension -- cont Metoprolol 12.5mg BID /Norvasc 10 mg daily History spontaneous intracranial hemorrhage as per records -- CT head:05/02 No acute intracranial hemorrhage, midline shift, intracranial mass, hydrocephalus, territorial ischemia or abnormal extra-axial collection. 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 The calvarium is intact. Subcutaneous edema of the scalp. Prominent suboccipital lymph nodes measure up to 6 mm. The paranasal sinuses, mastoid air cells, and middle ear cavities are clear. IMPRESSION: No acute intracranial abnormality. -pt started on low dose Aspirin ongoing tobacco abuse -- strongly encouraged for smoking cession pt declined nicotine patch history of seizures. -- not on any anti seizure med no recent seizure episode DVT prophylaxis. low risk very active at baseline SCD and teds FULL CODE DISPOSITION : discharge home when medically stable Medicine follow up with Dr Adams at [facility] History of Present Illness Chief Complaint: chest pain Primary Care Provider: Calin Nunez MD This is a 49 yo male with medical hx of HTN , remote hx of spontaneous intracranial bleed , Seizure -off antiseizure meds came to ER with complain of chest pain started this Afternoon . 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 , started with experience rt sided chest pain 8/10 which moved to central chest /sub sternal area lasting for 10-15 mins pt broke into cold sweat , felt dizzy and lightheaded , no syncope denies of any SOB or DOSHI his symptoms resolved with rest did not take any SL nitro was admitted on May 2019 with similar symptoms , cardiac cath showed non occlusive coronaries pt denies of any fever , chills , body ache , or cough , no known exposure to COVID 19 positive patient Allergies Allergy/AdvReac Type Severity Reaction Status Date / Time ceftriaxone Allergy Severe HIVES Verified 07/25/19 04:04 Home Medications Home Medications Medication Instructions Recorded Confirmed Type amlodipine 10 mg PO HS 05/02/19 08/01/19 History metoprolol tartrate 12.5 mg PO BID 30 Days #30 tab 05/04/19 08/01/19 Rx Past Med/Surg History Social History Preferred Language: Chinese Communication Ability: Effective 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 Beliefs That Will Affect Care: None Current Living Situation: Family Feels Safe at Home: Yes Smoking Status: Current every day smoker Tobacco Type: cigarettes ; Cigarettes Per Day: 20 ; Hx Alcohol Use: No Hx Substance Use: No Review of Systems Review of Systems: All systems reviewed & are unremarkable except as noted in HPI & below Respiratory: no cough, no dyspnea, no pain with cough and no wheezing Cardiovascular: + chest pain, + chest pain with activity and + lightheadedness; no dyspnea, no dyspnea on exertion, no orthopnea, no palpitations, no syncope and no edema Physical Exam Constitutional: WD/WN, vitals as above Eyes: PERRL, conjunctivae normal, anicteric sclerae ENMT: external ear and nose normal, oropharynx normal Neck: trachea midline, no thyromegaly Respiratory: normal respiratory effort, lungs clear to auscultation Cardiovascular: RRR, no murmur, no edema Gastrointestinal (Abdomen): normal bowel sounds, soft, nontender, no hepatosplenomegaly Musculoskeletal: no cyanosis or clubbing, extremities motor strength 5/5 Skin: no rashes, warm and dry Neurologic: PERRL, EOMI, accommodation nl, no face palsy, no dysarthria Psychiatric: A+Ox3, euthymic affect Results & Data Results & Data ([facility]) Vital Signs (Past 12 Hours) Vital Signs Temp Pulse Resp BP Pulse Ox 08/01/19 17:33 67 16 119/81 08/01/19 17:30 60 16 08/01/19 17:00 60 12 08/01/19 16:36 63 19 08/01/19 15:52 37.1 C 65 20 129/91 98
[2019-08-01] MEDS ORDERED: MAGNESIUM HYDROXIDE SUSP 30 ML UDC PO PRN (19:16)
[2019-08-01] MEDS ORDERED: POLYETHYLENE (MIRALAX) 17 GM PACK PO PRN (19:16)
[2019-08-01] MEDS ORDERED: ALUMINUM/MAGNESIUM SUSP 30 ML UDC PO PRN (19:16)
[2019-08-01] MEDS ORDERED: NITROGLYCERIN SL 0.4 MG/TAB TAB SL PRN (19:16)
[2019-08-01] MEDS ORDERED: ONDANSETRON INJ 2 MG/ML 2 ML VIAL IV PRN (19:16)
[2019-08-01 20:05] LABS: D Dimer 450 ug/L FEU (0-500)
[2019-08-01] MEDS ORDERED: AMLODIPINE BESYLATE 5 MG TAB PO SCH (21:00)
[2019-08-01] MEDS: METOPROLOL TARTRATE 25 MG TAB PO SCH (21:07)
[2019-08-02 04:32] LABS: Hematocrit (blood only) 44.3 % (42-52); Hemoglobin 16.4 g/dL (14.0-18.0); Mean Corpuscular Hemoglobin 30.5 pg (25-34); Mean Corpuscular Volume 82.3 fL (80-100); Mean Platelet Volume 9.9 fL (7.4-10.4); Platelet Count 203 K/uL (130-400); RDW Coefficient of Variation 12.9 % (11.5-14.5); Red Blood Count 5.38 M/uL (4.7-6.1); White Blood Count 10.03 K/uL (4.8-10.8)
[2019-08-02 04:46] LABS: BUN Creatinine Ratio 16.3 (10-20); Calcium 8.7 mg/dl (8.5-10.1); Creatinine Clr Calc Pharmacy 93.2 ml/min; Est GFR (African American) 82.1; Est GFR (Non-African American) 70.8; Magnesium 2.3 mg/dl (1.8-2.4); Potassium 3.9 mmol/L (3.5-5.1)
--- NOTE | 2019-08-02 07:43 | Electrocardiogram Report ---
Test Reason : Blood Pressure : / mmHG Vent. Rate : 060 BPM Atrial Rate : 060 BPM P-R Int : 160 ms QRS Dur : 092 ms QT Int : 394 ms P-R-T Axes : 026 083 053 degrees QTc Int : 394 ms Normal sinus rhythm ST elevation, consider early repolarization, pericarditis, or injury Abnormal ECG When compared with ECG of 25-JUL-2019 03:38, No significant change was found Confirmed by Ronaldo Herron ([id number]) on 08/02/2019 7:43:34 AM Referred By: REFERRED SELF Confirmed By:Ronaldo Herron
[2019-08-02] MEDS: METOPROLOL TARTRATE 25 MG TAB PO SCH ×2 (08:11→21:25)
[2019-08-02] MEDS: ASPIRIN 81 MG ECTAB PO SCH (08:12)
[2019-08-02] MEDS ORDERED: Nursing to Pharmacy Communication ONE (08:13)
[2019-08-02] MEDS: AMLODIPINE BESYLATE 5 MG TAB PO SCH (08:22)
--- NOTE | 2019-08-02 09:00 | Cardiology Consultation ---
Date of Consultation August 02, 2019 Assessment & Plan (1) Precordial chest pain: (2) Elevated troponin: (3) Coronary artery vasospasm: (4) Tobacco abuse: (5) Hypertension: Complex 49-year-old patient admitted with chest discomfort and elevated troponin. ECG without ischemic changes. Bedside echocardiogram within normal limits. I reviewed images from recent coronary angiography performed May 2019. There are no obstructive atherosclerotic lesions visualized. I do appreciate evidence of vasospasm involving the mid to distal LAD during progression of imaging. No anginal symptoms were reported during angiography, however, I suspect patient's current presentation may be related to vasospastic angina. Recommend addition of long-acting nitrates, isosorbide monohydrate 30 mg daily. Appropriate use of sublingual nitroglycerin reviewed. Patient reports a history of headache related to nitrates. May consider transition to calcium channel nanci therapy pending tolerance and clinical response. Other potential etiologies of chest discomfort and elevated troponins considered including vasculitis and/or myopericarditis given preserved LV systolic function. ECGs reviewed from May hospitalization demonstrate diffuse ST elevation. No pericardial effusion at that time nor per repeat echocardiogram today. Repeat ECG this admission is not consistent with pericarditis. I have ordered baseline lab studies including CRP, FRANKLIN, ANCA panel, and Lyme screen with Western blot confirmation. Patient carries a history of spontaneous intracerebral hemorrhage x2. Will not add anticoagulation at this time. Thank you for allowing to participate in the care of your patient. I will continue to follow during hospitalization. History of Present Illness Reason for Consultation: Chest pain, elevated troponin Requesting Physician: Dr. Katz Attending Physician: Liv Ramey MD History of Present Illness Complex 49-year-old patient presented to the emergency department with chest discomfort. Described a right-sided chest pain occurring approximately 1.5 hours prior to arrival in the ER. Pain became quite severe, up to 8/10. No associated shortness of breath. 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 Denies any recent exertional chest pain or unusual shortness of breath. No alleviating or aggravating factors noted. Chest pain spontaneously resolved in the emergency department. Chest pain-free since admission. Troponin mildly elevated. No ischemic ECG changes. Patient recently hospitalized in May with similar complaints. Cardiac catheterization was performed 05/04/2019 with patent coronary arteries. Serial troponins peaked at 3.07 during that hospitalization. Patient carries history of 2 spontaneous left temporal intracranial hemorrhages. Cerebral angiography negative x2. Prophylactically treated with Keppra at that time. Antiplatelet therapy was not prescribed due to history of intracranial hemorrhage. Patient tolerated aspirin and IV heparin during hospitalization in May. He was again evaluated in the emergency department 07/25/2019 with recurrent chest pain. A CT angiogram of the chest was performed without evidence of pulmonary embolus. Currently patient is resting comfortably. No dysrhythmias on telemetry. Admits to smoking 1 to 1.5 packs of cigarettes daily. Denies alcohol, or illicit drug use. Denies any intake of supplements or stimulants. States he typically walks 5 to 10 miles daily while working at [employer]. Functional capacity has been stable. Denies any focal weakness, visual changes, slurred speech, paresthesias, frequency, urgency, hematuria, dysuria, or signs/symptoms of GI blood loss. Allergies Allergy/AdvReac Type Severity Reaction Status Date / Time ceftriaxone Allergy Severe HIVES Verified 07/25/19 04:04 Home Medications Home Medications Medication Instructions Recorded Confirmed Type amlodipine 10 mg PO HS 05/02/19 08/01/19 History metoprolol tartrate 12.5 mg PO BID 30 Days #30 tab 05/04/19 08/01/19 Rx Patient History Medical History Acid reflux ACS (acute coronary syndrome) Heartburn HTN (hypertension) Surgical History No pertinent past surgical history Social History Preferred Language: Italian Communication Ability: Effective Integration Consultant Required: No Beliefs That Will Affect Care: None Current Living Situation: Alone Feels Safe at Home: Yes Safety Concerns: Feels Safe At This Time Smoking Status: Current every day smoker Tobacco Type: cigarettes ; Cigarettes Per Day: 15 ; Tobacco Cessation Education Requested by Patient: No Hx Alcohol Use: No Hx Substance Use: No Review of Systems Review of Systems: All systems reviewed & are unremarkable except as noted in HPI & below Physical Exam Constitutional: well developed, well nourished and + obese; not ill appearing Respiratory: normal respiratory effort; no respiratory distress, no labored breathing and no retractions Auscultation: no crackles, no rales, no rhonchi and no wheezes Cardiovascular: Rate/Rhythm: regular rate and regular rhythm Heart Sounds: normal S1 and normal S2; no gallop, no murmur and no cardiac rub Palpation: normal PMI Vessels: femoral pulses present; no JVD and no carotid bruit Extremities: normal capillary refill; no edema Gastrointestinal (Abdomen): Inspection/Auscultation: abdomen normal to inspection and normal bowel sounds; abdomen not distended Percussion/Palpation: abdomen soft; abdomen nontender, no guarding and abdomen not rigid Musculoskeletal: no cyanosis or clubbing, extremities motor strength 5/5 Skin: no rashes, warm and dry Neurologic: moves all extremities; no focal motor deficits Speech / Cognition: normal speech Motor/Sensory: no tremor Psychiatric: A+Ox3, euthymic affect Results & Data ([facility]) Vital Signs (Past 12 Hours) Vital Signs Temp Pulse Pulse Resp BP Pulse Ox 08/02/19 06:48 36.7 C 54 L 18 121/74 97 08/02/19 03:27 36.8 C 57 L 16 111/70 97 08/01/19 23:27 36.7 C 55 L 16 123/73 97 (1) Hypertension Hypertension type: essential hypertension Qualified Code(s): I10 - Essential (primary) hypertension
[2019-08-02] MEDS: ISOSORBIDE MONO EXTENDED REL 30 MG TABCR PO SCH (09:51)
[2019-08-02 10:55] LABS: C Reactive Protein < 0.29 mg/dl (0-0.29)
--- NOTE | 2019-08-02 11:56 | Electrocardiogram Report ---
Test Reason : Blood Pressure : / mmHG Vent. Rate : 052 BPM Atrial Rate : 052 BPM P-R Int : 168 ms QRS Dur : 096 ms QT Int : 420 ms P-R-T Axes : 038 079 057 degrees QTc Int : 390 ms Sinus bradycardia Nonspecific ST abnormality Abnormal ECG When compared with ECG of 01-AUG-2019 15:53, No significant change was found Confirmed by Ronaldo Herron ([id number]) on 08/02/2019 11:56:13 AM Referred By: REFERRED SELF Confirmed By:Ronaldo Herron
--- NOTE | 2019-08-02 12:09 | Hospitalist Progress Note ---
Date of Service August 02, 2019 Assessment & Plan (1) Precordial chest pain: History of chest pain with no obstructive coronary artery disease in cardiac cath recently Admitted with precordial chest pain/pressure Troponin mildly elevated without any EKG and echo findings Appreciate cardiology input and recommendation Remains free of pain in the hospital (2) Coronary artery vasospasm: Precordial pain is seems to be secondary to coronary vasospasm Long-acting nitrate has been added by the singer and unloader Vasculitic work-up has been sent to exclude any of such etiology (3) Elevated troponin: Noted to have troponin elevated mildly Highest level of troponin was noted to be 0.855 No EKG and/or echocardiographic abnormality Doubt any NSTEMI (4) Hypertension: Seems to be controlled (5) Tobacco abuse: Significant tobacco abuse disorder Has been smoking about 3 and half pack per day Advised to quit smoking Will provide nicotine patch on discharge Likely discharge tomorrow Admission and Anticipated Discharge Date Admission Date: August 01, 2019 Subjective The patient was seen and examined in telemetry unit He has significant nonobstructive CAD and was admitted with precordial chest pain Denies any significant chest pain or pressure this morning No nausea and/or vomiting Review of Systems Review of Systems: All systems reviewed and are unremarkable except as noted below Cardiovascular: + chest pain and + dyspnea on exertion Gastrointestinal: no abdominal pain Musculoskeletal: No arthritis involving any joints Physical Exam Physical Exam: Lying in bed comfortably Constitutional: well developed, well nourished and + obese; no acute distress and not ill appearing Eyes: PERRL, conjunctivae normal, anicteric sclerae ENMT: external ear and nose normal, oropharynx normal Neck: trachea midline, no thyromegaly Respiratory: normal respiratory effort; no respiratory distress Auscultation: lungs clear to auscultation bilaterally Cardiovascular: Rate/Rhythm: regular rate and regular rhythm Heart Sounds: no murmur Gastrointestinal (Abdomen): Inspection/Auscultation: abdomen normal to inspection; abdomen not distended Percussion/Palpation: abdomen soft; abdomen nontender Musculoskeletal: No acute arthritis involving any joints Neurologic: moves all extremities; no focal motor deficits Psychiatric: A+Ox3, euthymic affect Lymphatic: no cervical or axillary lymphadenopathy Results & Data Results & Data ([facility]) Vital Signs (Past 12 Hours) Vital Signs Temp Pulse Pulse Resp BP BP Pulse Ox 08/02/19 10:52 37.0 C 51 L 20 120/67 97 08/02/19 06:48 36.7 C 54 L 18 121/74 97 08/02/19 03:27 36.8 C 57 L 16 111/70 97 Laboratory Results Short CBC 08/01/19 08/02/19 Range/Units 16:00 04:17 WBC 10.95 H 10.03 (4.8-10.8) K/uL Hgb 16.7 16.4 (14.0-18.0) g/dL Hct 45.1 44.3 (42-52) % Plt Count 251 203 (130-400) K/uL BMP 08/01/19 08/02/19 16:00 04:17 Sodium 138 139 Potassium 3.9 3.9 Chloride 109 H 109 H Carbon Dioxide 24 27 BUN 19 H 19 H Creatinine 1.38 1.19 Glucose 96 96 Calcium 9.5 8.7 Cardiac Enzymes 08/01/19 08/01/19 08/02/19 Range/Units 16:00 21:42 04:17 Troponin I 0.405 H* 0.608 H* 0.855 H* (0-0.045) ng/ml 08/02/19 Range/Units 09:52 Troponin I 0.730 H* (0-0.045) ng/ml Liver Function 08/01/19 Range/Units 16:00 Total Bilirubin 0.5 (0.2-1) mg/dl AST 23 (15-37) U/L ALT 43 (12-78) U/L Alkaline Phosphatase 90 (45-117) U/L Albumin 4.2 (3.4-5.0) gm/dl Medications Administered Current Inpatient Medications Acetaminophen (Tylenol) 650 mg PO Q4H PRN PRN Reason: Pain or Fever Stop: 08/31/19 19:15 Al Hydrox/Mg Hydrox/Simethicone (Maalox) 15 ml PO Q4H PRN PRN Reason: Dyspepsia Stop: 08/31/19 19:15 Amlodipine Besylate (Norvasc) 10 mg PO [facility] Stop: 09/01/19 08:59 Last Admin: 08/02/19 08:22 Dose: 10 mg Documented by: Aspirin (Ecotrin Ectab) 81 mg PO [facility] Stop: 09/01/19 08:59 Last Admin: 08/02/19 08:12 Dose: 81 mg Documented by: Isosorbide Mononitrate (Imdur Extended Rel) 30 mg PO QAM [facility] Stop: 09/01/19 09:29 Last Admin: 08/02/19 09:51 Dose: 30 mg Documented by: Magnesium Hydroxide (Milk Of Magnesia) 30 ml PO Q12H PRN PRN Reason: Constipation Stop: 08/31/19 19:15 Metoprolol Tartrate (Lopressor) 12.5 mg PO BID [facility] Stop: 08/31/19 20:59 Last Admin: 08/02/19 08:11 Dose: 12.5 mg Documented by: Nitroglycerin (Nitrostat) 0.4 mg SL UD PRN PRN Reason: Chest Pain Stop: 08/31/19 19:15 Ondansetron HCl (Zofran) 4 mg IV Q6H PRN PRN Reason: Nausea Stop: 08/31/19 19:15 Polyethylene Glycol (Miralax Powder Packet) 17 gm PO DAILY PRN PRN Reason: Constipation Stop: 08/31/19 19:15 (1) Hypertension Hypertension type: essential hypertension Qualified Code(s): I10 - Essential (primary) hypertension
[2019-08-02] MEDS: ACETAMINOPHEN 325 MG TAB PO PRN ×2 (12:51→17:02)
[2019-08-02 13:12] LABS: Lyme Ab IgG w/WB Rflx Negative (Negative)
[2019-08-02 13:13] LABS: Lyme Ab IgM w/WB Rflx Negative (Negative)
[2019-08-02] MEDS ORDERED: TRAMADOL HCL 50 MG TABLET PO STA (22:22)
[2019-08-03 06:06] LABS: Basophils # (auto) 0.05 K/uL (0-0.2); Basophils % (auto) 0.5 %; Eosinophils # (auto) 0.32 K/uL (0-0.5); Eosinophils % (auto) 3.2 %; Hematocrit (blood only) 41.6 % (42-52); Hemoglobin 15.2 g/dL (14.0-18.0); Immature Granulocytes # (auto) 0.03 K/uL (0.00-0.02); Immature Granulocytes % (auto) 0.3 %; Lymphocytes # (auto) 2.42 K/uL (1.2-3.4); Mean Corpuscular Hemoglobin 30.2 pg (25-34); Mean Corpuscular Hgb Conc 36.5 g/dL (32-36); Mean Corpuscular Volume 82.5 fL (80-100); Mean Platelet Volume 9.9 fL (7.4-10.4); Monocytes # (auto) 0.71 K/uL (0.11-0.59); Neutrophils # (auto) 6.55 K/uL (1.4-6.5); Platelet Count 194 K/uL (130-400); RDW Coefficient of Variation 12.7 % (11.5-14.5); RDW Standard Deviation 37.8 fL (36.4-46.3); Red Blood Count 5.04 M/uL (4.7-6.1); White Blood Count 10.08 K/uL (4.8-10.8)
[2019-08-03 06:31] LABS: BUN Creatinine Ratio 19.6 (10-20); Calcium 8.5 mg/dl (8.5-10.1); Creatinine Clr Calc Pharmacy 83.7 ml/min; Est GFR (African American) 72.4; Est GFR (Non-African American) 62.5; Potassium 3.6 mmol/L (3.5-5.1)
[2019-08-03] MEDS: METOPROLOL TARTRATE 25 MG TAB PO SCH (08:21)
[2019-08-03] MEDS: ISOSORBIDE MONO EXTENDED REL 30 MG TABCR PO SCH (08:21)
[2019-08-03] MEDS: ASPIRIN 81 MG ECTAB PO SCH (08:21)
[2019-08-03] MEDS: AMLODIPINE BESYLATE 5 MG TAB PO SCH (08:21)
--- NOTE | 2019-08-03 11:50 | Hospitalist Progress Note ---
Date of Service August 03, 2019 Assessment & Plan (1) Precordial chest pain: History of chest pain with no obstructive coronary artery disease in cardiac cath recently Admitted with precordial chest pain/pressure Troponin mildly elevated without any EKG and echo findings Appreciate cardiology input and recommendation Remains free of pain in the hospital Echo of the heart-the left medical systolic function is normal with EF 60 to 65%, mild concentric LVH, no regional wall motion abnormalities and no significant valvular pathology Denies any more cardiac symptoms and no headache with long-acting nitro Will be discharged home this afternoon (2) Coronary artery vasospasm: Precordial pain is seems to be secondary to coronary vasospasm Long-acting nitrate has been added by the watch train assembler Vasculitic work-up has been sent to exclude any of such etiology-pending (3) Elevated troponin: Noted to have troponin elevated mildly Highest level of troponin was noted to be 0.855 No EKG and/or echocardiographic abnormality Doubt any NSTEMI (4) Hypertension: Seems to be controlled (5) Tobacco abuse: Significant tobacco abuse disorder Has been smoking about 3 and half pack per day Advised to quit smoking Will provide nicotine patch on discharge Strongly advised to quit smoking He does not like to have nicotine patch on discharge Likely discharge this afternoon Admission and Anticipated Discharge Date Admission Date: August 01, 2019 Subjective The patient was seen and examined in telemetry unit He has significant nonobstructive CAD and was admitted with precordial chest pain Denies any significant chest pain or pressure this morning No nausea and/or vomiting 08/03/2019 The patient was seen and examined in telemetry unit He remains stable and denies any chest pain or palpitation He does not have any withdrawal symptoms from not smoking for the last 3 days Will be discharged home this afternoon Review of Systems Review of Systems: All systems reviewed and are unremarkable except as noted below Cardiovascular: no chest pain and no dyspnea on exertion Musculoskeletal: No arthritis involving any joints Physical Exam Physical Exam: Lying in bed comfortably Constitutional: well developed, well nourished and + obese; no acute distress and not ill appearing Eyes: PERRL, conjunctivae normal, anicteric sclerae ENMT: external ear and nose normal, oropharynx normal Neck: trachea midline, no thyromegaly Respiratory: normal respiratory effort; no respiratory distress Auscultat ion: lungs clear to auscultation bilaterally Cardiovascular: Rate/Rhythm: regular rate and regular rhythm Heart Sounds: no murmur Gastrointestinal (Abdomen): Inspection/Auscultation: abdomen normal to inspection; abdomen not distended Percussion/Palpation: abdomen soft; abdomen nontender Musculoskeletal: No acute arthritis involving any joints Neurologic: moves all extremities; no focal motor deficits Psychiatric: A+Ox3, euthymic affect Lymphatic: no cervical or axillary lymphadenopathy Results & Data Results & Data ([facility]) Vital Signs (Past 12 Hours) Vital Signs Temp Pulse Resp BP Pulse Ox 08/03/19 11:12 36.7 C 50 L 18 106/61 96 08/03/19 07:34 36.7 C 61 18 109/68 96 08/03/19 04:11 36.6 C 54 L 16 110/70 98 Laboratory Results Short CBC 08/03/19 Range/Units 05:49 WBC 10.08 (4.8-10.8) K/uL Hgb 15.2 (14.0-18.0) g/dL Hct 41.6 L (42-52) % Plt Count 194 (130-400) K/uL BMP 08/03/19 05:49 Sodium 139 Potassium 3.6 Chloride 107 Carbon Dioxide 27 BUN 26 H Creatinine 1.32 Glucose 93 Calcium 8.5 Medications Administered Current Inpatient Medications Acetaminophen (Tylenol) 650 mg PO Q4H PRN PRN Reason: Pain or Fever Stop: 08/31/19 19:15 Last Admin: 08/02/19 17:02 Dose: 650 mg Documented by: Al Hydrox/Mg Hydrox/Simethicone (Maalox) 15 ml PO Q4H PRN PRN Reason: Dyspepsia Stop: 08/31/19 19:15 Amlodipine Besylate (Norvasc) 10 mg PO [facility] Stop: 09/01/19 08:59 Last Admin: 08/03/19 08:21 Dose: 10 mg Documented by: Aspirin (Ecotrin Ectab) 81 mg PO [facility] Stop: 09/01/19 08:59 Last Admin: 08/03/19 08:21 Dose: 81 mg Documented by: Isosorbide Mononitrate (Imdur Extended Rel) 30 mg PO [facility] Stop: 09/01/19 09:29 Last Admin: 08/03/19 08:21 Dose: 30 mg Documented by: Magnesium Hydroxide (Milk Of Magnesia) 30 ml PO Q12H PRN PRN Reason: Constipation Stop: 08/31/19 19:15 Metoprolol Tartrate (Lopressor) 12.5 mg PO BID [facility] Stop: 08/31/19 20:59 Last Admin: 08/03/19 08:21 Dose: 12.5 mg Documented by: Nitroglycerin (Nitrostat) 0.4 mg SL UD PRN PRN Reason: Chest Pain Stop: 08/31/19 19:15 Ondansetron HCl (Zofran) 4 mg IV Q6H PRN PRN Reason: Nausea Stop: 08/31/19 19:15 Polyethylene Glycol (Miralax Powder Packet) 17 gm PO DAILY PRN PRN Reason: Constipation Stop: 08/31/19 19:15 (1) Hypertension Hypertension type: essential hypertension Qualified Code(s): I10 - Essential (primary) hypertension
--- NOTE | 2019-08-03 12:19 | Cardiology Progress Note ---
Date of Service August 03, 2019 Assessment & Plan (1) Precordial chest pain: (2) Elevated troponin: (3) Coronary artery vasospasm: (4) Tobacco abuse: (5) Hypertension: Continue low-dose isosorbide monohydrate, 30 mg daily. Consider transition to calcium channel nanci therapy if tolerance does not improve (mild headache currently). Continue beta-nanci as previously ordered. Smoking cessation strongly advised. All questions answered to patient's satisfaction. Outpatient cardiology follow-up in 2 weeks. Subjective Patient seen and examined the bedside. No recurrent chest pain since admission. Tolerating low-dose isosorbide monohydrate. Mild headache reported. Denies palpitations, lightheadedness, dizziness, syncope, or near syncope. Telemetry demonstrates sinus bradycardia without dysrhythmia. Patient offers no compla ints currently. Requesting discharge if possible. Review of Systems Review of Systems: All systems reviewed & are unremarkable except as noted in HPI & below Physical Exam Constitutional: well developed, well nourished and + obese; not ill appearing Respiratory: normal respiratory effort; no respiratory distress, no labored breathing and no retractions Auscultation: no crackles, no rales, no rhonchi and no wheezes Cardiovascular: Rate/Rhythm: regular rate and regular rhythm Heart Sounds: normal S1 and normal S2; no gallop, no murmur and no cardiac rub Palpation: normal PMI Vessels: femoral pulses present; no JVD and no carotid bruit Extremities: normal capillary refill; no edema Gastrointestinal (Abdomen): Inspection/Auscultation: abdomen normal to inspection and normal bowel sounds; abdomen not distended Percussion/Palpation: abdomen soft; abdomen nontender, no guarding and abdomen not rigid Musculoskeletal: no cyanosis or clubbing, extremities motor strength 5/5 Skin: no rashes, warm and dry Neurologic: moves all extremities; no focal motor deficits Speech / Cognition: normal speech Motor/Sensory: no tremor Psychiatric: A+Ox3, euthymic affect Results & Data Vital Signs (Past 12 Hours) Vital Signs Temp Pulse Resp BP Pulse Ox 08/03/19 11:12 36.7 C 50 L 18 106/61 96 08/03/19 07:34 36.7 C 61 18 109/68 96 08/03/19 04:11 36.6 C 54 L 16 110/70 98 (1) Hypertension Hypertension type: essential hypertension Qualified Code(s): I10 - Essential (primary) hypertension
--- NOTE | 2019-08-04 08:29 | Discharge Summary ---
Date of Service August 04, 2019 Admission HPI Per Admitting Provider This is a 49 yo male with medical hx of HTN , remote hx of spontaneous intracranial bleed , Seizure -off antiseizure meds came to ER with complain of chest pain started this Afternoon . 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 , started with experience rt sided chest pain 8/10 which moved to central chest /sub sternal area lasting for 10-15 mins pt broke into cold sweat , felt dizzy and lightheaded , no syncope denies of any SOB or DOSHI his symptoms resolved with rest did not take any SL nitro was admitted on May 2019 with similar symptoms , cardiac cath showed non occlusive coronaries pt denies of any fever , chills , body ache , or cough , no known exposure to COVID 19 positive patient Admission Exam Per Admitting Provider Constitutional: WD/WN, vitals as above Eyes: PERRL, conjunctivae normal, anicteric sclerae ENMT: external ear and nose normal, oropharynx normal Neck: trachea midline, no thyromegaly Respiratory: normal respiratory effort, lungs clear to auscultation Cardiovascular: RRR, no murmur, no edema Gastrointestinal (Abdomen): normal bowel sounds, soft, nontender, no hepatosplenomegaly Musculoskeletal: no cyanosis or clubbing, extremities motor strength 5/5 Skin: no rashes, warm and dry Neurologic: PERRL, EOMI, accommodation nl, no face palsy, no dysarthria Psychiatric: A+Ox3, euthymic affect Principal Diagnosis Chest pain likely secondary to coronary vasospasm-no ACS, hypertension, tobacco abuse Discharge Exam Constitutional well developed, well nourished and + obese; no acute distress and not ill appearing Eyes PERRL, conjunctivae normal, anicteric sclerae ENMT external ear and nose normal, oropharynx normal Neck trachea midline, no thyromegaly Respiratory normal respiratory effort; no respiratory distress Auscultation: lungs clear to auscultation bilaterally Cardiovascular Rate/Rhythm: regular rate and regular rhythm Heart Sounds: no murmur Gastrointestinal (Abdomen) Inspection/Auscultation: abdomen normal to inspection; abdomen not distended Percussion/Palpation: abdomen soft; abdomen nontender Neurologic moves all extremities; no focal motor deficits Psychiatric A+Ox3, euthymic affect Lymphatic no cervical or axillary lymphadenopathy Discharge Data Allergies Allergy/AdvReac Type Severity Reaction Status Date / Time ceftriaxone Allergy Severe HIVES Verified 07/25/19 04:04 Consultations 08/01/19 17:06 ED Decision to Admit Stat 08/01/19 19:16 Consult Cardiology Routine Hospital Course (1) Precordial chest pain: History of chest pain with no obstructive coronary artery disease in cardiac cath recently Admitted with precordial chest pain/pressure Troponin mildly elevated without any EKG and echo findings Appreciate cardiology input and recommendation Remains free of pain in the hospital Echo of the heart-the left medical systolic function is normal with EF 60 to 65%, mild concentric LVH, no regional wall motion abnormalities and no significant valvular pathology Denies any more cardiac symptoms and no headache with long-acting nitro Will be discharged home this afternoon (2) Coronary artery vasospasm: Precordial pain is seems to be secondary to coronary vasospasm Long-acting nitrate has been added by the plumber's helper Vasculitic work-up has been sent to exclude any of such etiology-pending (3) Elevated troponin: Noted to have troponin elevated mildly Highest level of troponin was noted to be 0.855 No EKG and/or echocardiographic abnormality Doubt any NSTEMI (4) Hypertension: Seems to be controlled (5) Tobacco abuse: Significant tobacco abuse disorder Has been smoking about 3 and half pack per day Advised to quit smoking Will provide nicotine patch on discharge Strongly advised to quit smoking He does not like to have nicotine patch on discharge Likely discharge this afternoon Total Time Total Time Spent Total Time Spent (In Minutes): 35 mniutes Total Time Includes: Examination of the Patient, Discharge Planning, Medication Reconciliation and Communication With Other Providers Discharge Plan Discharge Items Patient Disposition: Home - Self-Care Reason For Visit: CHEST PAIN Discharge Diagnosis: Chest pain likely secondary to coronary vasospasm-no ACS, hypertension, tobacco abuse Condition on Discharge: Good Activity: Resume your previous activity Non-emergency contact: Primary Care Provider Call non-emergency contact if: you have any medication questions and your symptoms worsen Follow-up/Referrals: Calin Nunez MD [Primary Care Provider] - 08/10/19 11:00 am Diet: Heart Healthy Addtl Attending Provider Instructions: Please quit smoking Please continue your medications as prescribed Pending Studies at Discharge: Yes Studies:: Vasculitis work-up Stand-Alone Forms: My [employer], Smoking Cessation Medications and DC Order Prescriptions: New isosorbide mononitrate 30 mg Tablet Extended Release 24 Hr 30 mg PO QAM 30 Days Qty: 30 RF: 0 nitroglycerin [Nitrostat] 0.4 mg Tablet, Sublingual 0.4 mg sublingual UD PRN (Reason: chest pain) 30 Days Qty: 30 RF: 0 Continued amlodipine 10 mg tablet 10 mg PO HS RF: 0 metoprolol tartrate 25 mg Tablet 12.5 mg PO BID 30 Days Qty: 30 RF: 2 Discharge Orders: Discharge Order (Routine); Ordered 08/03/19 Ordered By: Liv Ramey Admission Data Admit Date/Time: 08/01/19 18:15 Attending Provider: Liv Ramey Admit Provider: Rea Katz Primary Care Provider: Calin Nunez Other Providers: Rea Katz ; Deejay Armas ; Herbert Barillas ; Mariano Jacques ; Palmer Kelly ; Panchito Corcoran ; Darrell Pena ; Erum Pugh ; Luann Matamoros ; Gabriel Elizondo Other Interventions: Discharge Summary Assessment (RN) Last Done: 08/03/19 14:20 DC Date/Time DO NOT enter until pt leaves facility: 08/03/19 14:40
[2019-08-04 10:28] LABS: Anti Nuclear Antibody Screen NEGATIVE (NEGATIVE)
[2019-08-05 23:33] LABS: ANCA Screen Negative (Negative); Myeloperoxidase Ab <1.0 AI (<1.0); Proteinase-3 AB <1.0 AI (<1.0)
== END 2019-08-03 14:40 | disposition home or self-care (01) | DRG 311 ==
LOC: ED 15:49 → 2S 18:15 → SUATTDRO 18:15 → 2S 18:35